=== PATIENT | female | born 1940 | race Asian ===

== ENCOUNTER 2018-09-23 15:13 | Inpatient (IN) | payer OTHER ==
[~2018-09-23] VITALS: Ht 152.4 cm; Wt 63.4 kg
[2018-09-23] MEDS ORDERED: SODIUM CHLORIDE 0.9% 1L BAG IV* STA (15:33)
[2018-09-23] MEDS ORDERED: CEFEPIME 2GM/50 ML (PMX) 50 ML IVPB STA (15:33)
--- NOTE | 2018-09-23 15:47 | ERD ---
ER Documentation Chief Complaint Chief Complaint gen weakness and cough and congestion for 3 wks and poor po intake HPI This is a 78-year-old female who is here for cough congestion generalized weakness, excessive sleeping and decreased appetite for 3 days. The daughter is here with the patient says the last time this happened the patient had a UTI. Patient denies any GI symptoms of pain nausea vomiting or diarrhea. Denies any dysuria. She does complain of generalized malaise and fatigue ROS All systems reviewed and are negative except as per history of present illness. Medications Home Meds Reported Medications Sertraline Hcl* (Sertraline Hcl*) 25 Mg Tablet, 25 MG PO DAILY, #30 TAB 09/23/18 Alprazolam* (Xanax*) 2 Mg Tablet, 2 MG PO BID, TAB 09/23/18 Atorvastatin Calcium* (Atorvastatin Calcium*) 20 Mg Tablet, 20 MG PO QHS, #30 TAB 09/23/18 Labetalol Hcl* (Labetalol Hcl*) 300 Mg Tablet, 300 MG PO BID, TAB 09/23/18 Hydralazine Hcl* (Hydralazine Hcl*) 50 Mg Tab, 50 MG PO BID, #120 TAB 09/23/18 Calcium Carbonate/Vitamin D3 (Calcium 500 mg Chewable Tablet) 1 Each Tab.chew, 1 EACH PO BID, TAB.CHEW 09/23/18 Diclofenac Sodium* (Voltaren* Gel) 1% -100 Gm Gel, GM TOP QID, #1 TUB 09/23/18 Gabapentin* (Gabapentin*) 300 Mg Capsule, 300 MG PO BID, #60 CAP 09/23/18 Furosemide* (Furosemide*) 40 Mg/5 Ml Solution, 40 MG PO DAILY, #150 ML 09/23/18 Meloxicam* (Mobic*) 15 Mg Tablet, 15 MG PO DAILY, #30 TAB 09/23/18 Alendronate Sodium* (Fosamax*) 70 Mg Tablet, 70 MG PO Q7D, #4 TAB 09/23/18 Omeprazole* (Omeprazole*) 20 Mg Capsule.dr, 20 MG PO DAILY, #30 CAP 09/23/18 Metformin Hcl* (Metformin Hcl*) 500 Mg Tablet, 500 MG PO WITH MEALS, #90 TAB 09/23/18 Docusate Sodium* (Colace*) 250 Mg Capsule, 250 MG PO BID, #60 CAP 09/23/18 Aspirin (Aspir-Low) 81 Mg Tablet.dr, 81 MG PO DAILY 09/23/18 Allergies Allergies: Coded Allergies: codeine (Verified Allergy, Unknown, 09/23/18) FmHx Family History: No coronary disease Physical Exam Vitals Vital Signs Date Temp Pulse Resp B/P (MAP) Pulse Ox O2 O2 Flow FiO2 Time Delivery Rate 09/23/18 98.6 61 19 169/96 100 Nasal 2.0 16:37 (120) Cannula 09/23/18 Nasal 2.0 16:07 Cannula 09/23/18 Nasal 2 16:07 Cannula 09/23/18 97.8 100 20 144/100 98 15:27 (115) Physical Exam Const: Well-developed, well-nourished Head: Atraumatic, normocephalic Eyes: Normal Conjunctiva, PERRLA, EOMI, normal sclera, no nystagmus ENT: Normal External Ears, Nose and Mouth, moist mucus membranes. Neck: Full range of motion. No meningismus, no lymphadenopathy. Resp: Clear to auscultation bilaterally, no wheezing, rhonchi, rales Cardio: Regular rate and rhythm, no murmurs, S1 S2 present Abd: Soft, non tender x 4, non distended. Normal bowel sounds, no guarding or rebound, no pulsitile abdominal masses or bruits Skin: No petechiae or rashes, no ecchymosis , no maculopapular rash Back: No midline or flank tenderness Ext: No cyanosis, or edema, FROM x 4, normal inspection, neurovascularly intact x 4 Neur: Awake and alert, STR 5/5 x 4, sensation intact x 4, no focal findings, cerebellum intact Psych: Normal Mood and Affect Result Diagram: 09/23/18 1540 09/23/18 1540 Results 24 hrs Laboratory Tests Test 09/23/18 15:40 09/23/18 15:48 White Blood Count 9.8 10^3/ul Red Blood Count 4.07 10^6/ul Hemoglobin 11.9 g/dl Hematocrit 37.6 % Mean Corpuscular Volume 92.4 fl Mean Corpuscular Hemoglobin 29.2 pg Mean Corpuscular Hemoglobin Concent 31.6 g/dl Red Cell Distribution Width 14.6 % Platelet Count 567 10^3/UL Mean Platelet Volume 9.9 fl Immature Granulocytes % 0.900 % Neutrophils % 82.5 % Lymphocytes % 8.4 % Monocytes % 6.8 % Eosinophils % 0.8 % Basophils % 0.6 % Nucleated Red Blood Cells % 0.2 /100WBC Immature Granulocytes # 0.090 10^3/ul Neutrophils # 8.1 10^3/ul Lymphocytes # 0.8 10^3/ul Monocytes # 0.7 10^3/ul Eosinophils # 0.1 10^3/ul Basophils # 0.1 10^3/ul Nucleated Red Blood Cells # 0.0 10^3/ul Urine Color DAVE Urine Clarity CLOUDY Urine pH 5.0 Urine Specific [place] 1.021 Urine Ketones TRACE mg/dL Urine Nitrite NEGATIVE mg/dL Urine Bilirubin NEGATIVE mg/dL Urine Urobilinogen 2+ mg/dL Urine Leukocyte Esterase NEGATIVE Ilana/ul Urine Microscopic RBC 2 /HPF Urine Microscopic WBC 6 /HPF Urine Squamous Epithelial Cells FEW /HPF Urine Hyaline Casts FEW /HPF Urine Mucus FEW /HPF Urine Hemoglobin NEGATIVE mg/dL Urine Glucose NEGATIVE mg/dL Urine Total Protein NEGATIVE mg/dl Sodium Level 147 mmol/L Potassium Level 3.7 mmol/L Chloride Level 109 mmol/L Carbon Dioxide Level 26 mmol/L Anion Gap 12 Blood Urea Nitrogen 41 mg/dl Creatinine 1.35 mg/dl Est Glomerular Filtrat Rate mL/min mL/min Glucose Level 128 mg/dl Calcium Level 9.5 mg/dl Total Bilirubin 0.3 mg/dl Direct Bilirubin 0.00 mg/dl Indirect Bilirubin 0.3 mg/dl Aspartate Amino Transf (AST/SGOT) 42 IU/L Alanine Aminotransferase (ALT/SGPT) 34 IU/L Alkaline Phosphatase 96 IU/L Troponin I 0.078 ng/ml Total Protein 7.7 g/dl Albumin 3.7 g/dl Globulin 4.00 g/dl Albumin/Globulin Ratio 0.92 POC Venous Lactate 2.1 mmol/L Current Medications Medications Dose Sig/Nena Start Time Status Last (Trade) Ordered Route PRN Stop Time Admin Dose Reason Admin Sodium 2,180 ml BOLUS OVER 2 09/23/18 DC 09/23/18 Chloride HOURS STAT 15:33 09/23/18 15:52 (NS) IV* 15:36 Cefepime HCl 50 ml @ ONCE STAT 09/23/18 DC 09/23/18 100 mls/hr IVPB 15:33 09/23/18 15:52 16:02 Vancomycin 250 ml @ ONCE ONCE 09/23/18 09/23/18 HCl 125 mls/hr IVPB 16:00 09/23/18 16:34 17:59 Procedures/MDM Ordering MD: MARÍA MICHELLE DO Location: E/R Room/Bed: PROCEDURE: XR Chest. CLINICAL INDICATION: Chest pain TECHNIQUE: Single frontal view of the chest was obtained. COMPARISON: None FINDINGS: The heart is within normal limits. The thoracic aorta is calcified. There are mild increased interstitial changes throughout the lungs. There is no focal infiltrate. There is a possible 4 mm right lower lobe nodular opacity. There is no pleural effusion or pneumothorax. RPTAT: AA IMPRESSION: Mild increased interstitial changes throughout the lungs. Possible 4 mm right lower lobe nodular opacity. Follow-up CT chest is recommended. Calcified aorta consistent with atherosclerotic disease. .Alirio Costa MD, MD Date Time Electronically viewed and signed by .Alirio Costa MD, MD on 09/23/2018 16:10 .S/ CC: MARÍA MICHELLE DO [id number] EKG: Rate/Rhythm: Sinus rhythm with a heart rate of 91 with right axis d eviation QRS, ST, QT: NORMAL [place], QRS, prolonged QT] Impression: Abnormal Admit MDM: Patient's infectious symptoms have not stabilized and the patient is at risk of rapid decompensation. The patient will be admitted for careful hydration, antibiotic therapy, and infectious source control. Severe Sepsis criteria: Infectious source: Urine End organ damage indicated by: Elevated lactate Lactate > 2.0 mmol/L Hypotension (SBP < 90 or >40 mmHG drop or MAP < 65) Acute Resp Failure (sat < 92% w/o oxygen) General Accountant > 2.0 INR > 1.5 Plt < 100 Bili > 2 Sepsis Management: Time of recognition of severe sepsis: At time of lactate Within 3 hours of recognition: Blood cultures x 2 before broad-spectrum antibiotics: yes 30 ml/kg NS bolus completed Initial lactate 2.1 Repeat lactate pending Septic Shock Assessment: Any lactic acid > 4.0 no Persistent hypotension (SBP < 90 or 40 mmHg drop, MAP < 65) despite 30 mL/kg IV fluid bolusno Persistent Hypotension Treatment: Comfort care no Hypotension caused by: pt. baseline, med-induced, erroneous value, condition other than infection no Refusal by patient/decision maker for: blood draw, IVF, Antibiotics, Pressorsno Accepting Care Team Current data and ongoing care discussed. Time: Admitting Physician: Panel Shaker Repairer(s): Outstanding Data: none Critical Care Time: 30 minutes Treatments/Evaluations: Close monitoring and treatment of unstable vital signs, cardiorespiratory, and neurologic status, while maintaining tight balance of fluid, respiratory, and cardiac interventions. This includes the administration of emergency fluid management while maintaining close respiratory support as well as the provision of immediate and broad-spectrum antibiotic therapy, while performing a simultaneous assessment for possible sources in order to direct targeted therapy. This time includes discussing the case with the patient and the patient's family. This time also includes the consideration for invasive and chemical support to prevent cardiopulmonary collapse. This time does not include all procedures stated elsewhere in this record. This time also includes reviewing old records, labs and radiological studies. This time includes examining and re-examining the patient. Additionally, this time also includes arranging care with admitting and consulting physicians. Departure Diagnosis: Primary Impression: Sepsis Sepsis type: sepsis due to unspecified organism Qualified Codes: A41.9 - Sepsis, unspecified organism Additional Impressions: UTI (urinary tract infection) Urinary tract infection type: acute cystitis Hematuria presence: without hematuria Qualified Codes: N30.00 - Acute cystitis without hematuria URI (upper respiratory infection) URI type: unspecified URI Qualified Codes: J06.9 - Acute upper respiratory infection, unspecified Condition: Stable MARÍA MICHELLE DO Sep 23, 2018 15:47
[2018-09-23] MEDS ORDERED: VANCOMYCIN 1 GM (PMX) 250 ML IVPB ONE (16:00)
[2018-09-23] MEDS ORDERED: ASPI81TA50 PO (16:51)
[2018-09-23] MEDS ORDERED: DOCU250C58 PO (16:52)
[2018-09-23] MEDS ORDERED: METF500T24 PO (16:53)
[2018-09-23] MEDS ORDERED: OMEP20CA16 PO (16:56)
[2018-09-23] MEDS ORDERED: ALEN70TA5 PO (16:57)
[2018-09-23] MEDS ORDERED: FURO40SO PO (16:58)
[2018-09-23] MEDS ORDERED: GABA300C16 PO (16:58)
[2018-09-23] MEDS ORDERED: MELO15TA30 PO (16:58)
[2018-09-23] MEDS ORDERED: DICL100G37 TOP (17:02)
[2018-09-23] MEDS ORDERED: HYDR-3672 PO (17:04)
[2018-09-23] MEDS ORDERED: CALC-686 PO (17:04)
[2018-09-23] MEDS ORDERED: ATOR20TA38 PO (17:05)
[2018-09-23] MEDS ORDERED: LABE300T2 PO (17:05)
[2018-09-23] MEDS ORDERED: SERT25TA83 PO (17:06)
[2018-09-23] MEDS ORDERED: ALPR2TAB PO (17:06)
[2018-09-23] MEDS ORDERED: NACL 0.9% 3 ML SYG IV SCH (18:30)
--- NOTE | 2018-09-23 18:45 | HP ---
Date/Time of Note Date/Time of Note DATE: 09/23/18 TIME: 18:32 Assessment/Plan VTE Prophylaxis SCD applied (from Nsg): Yes Pharmacological prophylaxis: NA/contraindicated Pharm contraindication: low risk/ambulating Lines/Catheters IV Catheter Type (from Nrsg): Peripheral IV Assessment/Plan Assessment/Plan 78 yo woman with HTN, dyslipidemia presents with several days of fatigue and elevated Cr #Fatigue, anorexia - May represent viral exanthem - Vitals, labs on admission not concerning for sepsis. - UTI: UA with mild pyuria. No dysuria. Will send urine culture. For now suspicion is low, will hold off on Abx. - CXR: No pneumonia - Will start diet - Also will hold benzo - Physical therapy. #Hypoxia - On admission, patient requiring 2L NC - CXR with diffuse interstitial infiltrates - If ABG shows significant hypoxia, will consider high-res CT chest. #Elevated Cr - No known baseline. - This may just be CKD - Will check renal US, repeat BMP in AM #HTN - Cont home beta olimpia and hydralazine #Dyslipidemia - Cont home statin. DVT: SCDs GI: PPI Result Diagram: 09/23/18 1540 09/23/18 1540 HPI/ROS Admit Date/Time Admit Date/Time September 23, 2018 Hx of Present Illness Ms. Nunez is a pleasant Somali-speaking woman brought in by daughter for fatigue and weakness. Over the past three days she reports anorexia and gradually progressive weakness. Two days ago when her daughter was trying to help her up, the patient slid off her bed because she was too weak to support her weight. She didn't strike her head and didn't have pain afterwards; no loss of consciousness. Also with anorexia during this time. The daughter reports last time this happened, the patient had a UTI. About a month ago she had an upper respiratory infection with productive cough; this has almost completely resolved. Today her daughter brought her to a new PMD (the old one wasn't covered by her insurance anymore) and she was told she had kidney problems and should go to the emergency room. In the ED she was afebrile, slightly tachy to 100, BP 169/96. Breathing comfortably on nasal cannula. Labs unremarkable except for Cr of 1.35. ROS Denies recent fevers, chills, night sweats, weight loss, sore throat, dysphagia, headaches, dizziness, chest pain/pressure/palpitations, dyspnea, nausea, vomiting, abdominal pain, diarrhea, constipation, dysuria, hematuria PMH/Family/Social Past Medical History HTN Dyslipidemia Anxiety Coded Allergies: codeine (Verified Allergy, Unknown, 09/23/18) Past Surgical History Social History Lives with daughter. She is normally independent with ADLs. Alcohol Use: none Smoking Status: Never smoker Drug Use: none Exam/Review of Systems Vital Signs Vitals Vital Signs Date Temp Pulse Resp B/P (MAP) Pulse Ox O2 O2 Flow FiO2 Time Delivery Rate 09/23/18 98.6 61 19 169/96 100 Nasal 2.0 16:37 (120) Cannula Exam Exam Gen: Well appearing but frail elderly woman awake and answering questions slightly slowly. Eyes: PERRL, no icterus HEENT: Clear oropharynx, moist mucous membranes Neck: No lymphadenopathy, supple Card: Regular rate and rhythm, no murmurs Pulm: Clear to auscultation bilaterally, mild diffuse crackles throughout. Abd: Soft, nontender, nondistended. No organomegaly, normoactive bowel sounds. Ext: No cyanosis/clubbing/edema, intact peripheral pulses. Skin: warm, dry, well perfused. NITA BERRIOS MD Sep 23, 2018 18:44
[2018-09-23] MEDS ORDERED: ACETAMINOPHEN 325 MG TAB PO PRN (19:00)
[2018-09-23] MEDS ORDERED: ONDANSETRON 4 MG INJ IV PRN (19:00)
[2018-09-23 21:30] VITALS: BP 133/80; PULSE 101; RESP 20
[2018-09-23] MEDS: ATORVASTATIN 20 MG TAB PO SCH (23:00)
[2018-09-23] MEDS: GABAPENTIN 300 MG CAP PO SCH (23:00)
[2018-09-23] MEDS ORDERED: LEVALBUTEROL (NEB) 1.25 MG/0.5 ML AMP HHN PRN (23:30)
[2018-09-23] MEDS ORDERED: IPRATROPIUM (NEB) 0.5 MG/2.5 ML AMP HHN PRN (23:30)
[2018-09-24 02:00] VITALS: BP 112/75; PULSE 98
[2018-09-24] MEDS: PANTOPRAZOLE (EC) 40 MG TAB PO SCH (08:25)
[2018-09-24] MEDS: ASPIRIN (EC) 81 MG TAB PO SCH (08:28)
[2018-09-24] MEDS: GABAPENTIN 300 MG CAP PO SCH ×2 (08:29→21:44)
[2018-09-24] MEDS: LABETALOL 100 MG TAB PO SCH ×3 (08:29→21:44)
[2018-09-24 08:52] VITALS: BP 133/69; PULSE 98; RESP 18
[2018-09-24] MEDS ORDERED: POTASSIUM CHLORIDE 20 MEQ POWDER FOR ORAL SOLN PO ONE (09:00)
[2018-09-24 15:04] VITALS: BP_DIAS 73; PULSE 91; RESP 20
--- NOTE | 2018-09-24 16:42 | PN ---
Date/Time of Note Date/Time of Note DATE: 09/24/18 TIME: 16:40 Assessment/Plan VTE Prophylaxis Risk score (from Ns)>0 risk: 5 SCD applied (from Ns): Yes Pharmacological prophylaxis: NA/contraindicated Pharm contraindication: low risk/ambulating Lines/Catheters [facility] Saline Lock Urinary Cath still in place: No Assessment/Plan Assessment/Plan 78 yo woman with HTN, dyslipidemia presents with several days of fatigue and elevated Cr #Fatigue, anorexia - May represent viral exanthem - Vitals, labs on admission not concerning for sepsis. - UTI: UA with mild pyuria. No dysuria. Will send urine culture. For now suspicion is low, will hold off on Abx. - CXR: No pneumonia - Will start diet - Also will hold benzo - Physical therapy. #Hypoxia - On admission, patient requiring 2L NC - CXR with diffuse interstitial infiltrates - If ABG with very low PaO2 69, - will get high-res CT chest. #Elevated Cr - No known baseline. - Now downtrending. #HTN - Cont home beta olimpia and hydralazine #Dyslipidemia - Cont home statin. DVT: SCDs GI: PPI Result Diagram: 09/24/18 0452 09/24/18 0452 Subjective 24 Hr Interval Summary Free Text/Dictation No acute overnight events. Patient doing well, much more talkative according to daughter. Able to ambulate out of bed, sit on chair. Exam/Review of Systems Exam Vitals Vital Signs Date Temp Pulse Resp B/P (MAP) Pulse Ox O2 O2 Flow FiO2 Time Delivery Rate 09/24/18 98.2 91 20 /73 94 Nasal 15:04 Cannula 09/24/18 2.0 14:09 Intake and Output 09/23/18 09/23/18 09/24/18 1515:00 23:00 07:00 IntakeIntake Total 2230 ml BalanceBalance 2230 ml Exam Gen: Well appearing but frail elderly woman awake and answering questions slightly slowly. Eyes: PERRL, no icterus HEENT: Clear oropharynx, moist mucous membranes Neck: No lymphadenopathy, supple Card: Regular rate and rhythm, no murmurs Pulm: Clear to auscultation bilaterally, mild diffuse crackles throughout. Abd: Soft, nontender, nondistended. No organomegaly, normoactive bowel sounds. Ext: No cyanosis/clubbing/edema, intact peripheral pulses. Skin: warm, dry, well perfused. Results Results 24hrs Laboratory Tests Test 09/23/18 17:52 09/23/18 20:59 09/23/18 23:02 09/24/18 04:52 POC Venous Lactate 1.3 Lactic Acid Level 1.1 Blood Gas Specimen Blood arterial Source Arterial Blood 09/24/2018 12:00:48 Date Drawn AM Arterial Blood pH 7.414 (Temp corrected) Arterial Blood 35.2 pCO2 (Temp correct) Arterial Blood pO2 69.5 L (Temp corrected) Arterial Blood 22.0 HCO3 Arterial Blood -2.1 Base Excess Arterial Blood 92.9 L Oxygen Saturation Jose Test ACCEPTAB Arterial Blood Gas Right Radial Puncture Site Arterial 0 Blood Carboxyhemog lobin Arterial Blood 0 Methemoglobin Blood Gas A-a O2 81.4 H Differential Oxyhemoglobin 92.9 L Percent Blood Gas 37.0 Temperature Blood Gas Modality NASAL CANNULA FiO2 27.0 Blood Gas Notified MM Whom Blood Gas Notified 09/24/2018 12:14:11 Time AM White Blood Count 7.9 Red Blood Count 3.38 L Hemoglobin 9.8 L Hematocrit 31.2 L Mean Corpuscular 92.3 Volume Mean Corpuscular 29.0 Hemoglobin Mean Corpuscular 31.4 L Hemoglobin Concent Red Cell 14.7 H Distribution Width Platelet Count 482 H Mean Platelet 9.9 Volume Immature 0.600 H Granulocytes % Neutrophils % 69.5 Lymphocytes % 15.0 Monocytes % 9.6 Eosinophils % 4.8 Basophils % 0.5 Nucleated Red 0.0 Blood Cells % Immature 0.050 H Granulocytes # Neutrophils # 5.5 Lymphocytes # 1.2 Monocytes # 0.8 Eosinophils # 0.4 Basophils # 0.0 Nucleated Red 0.0 Blood Cells # Sodium Level 146 H Potassium Level 3.4 L Chloride Level 115 H Carbon Dioxide 24 Level Anion Gap 7 Blood Urea 32 H Nitrogen Creatinine 1.18 H Est Glomerular Filtrat Rate mL/min Glucose Level 95 Hemoglobin A1c 5.8 Calcium Level 8.3 L Phosphorus Level 4.5 Magnesium Level 1.9 Total Bilirubin 0.2 Direct Bilirubin 0.00 Indirect Bilirubin 0.2 Aspartate Amino 27 Transf (AST/SGOT) Alanine 30 Aminotransferase ( ALT/SGPT) Alkaline 67 Phosphatase Total Protein 5.9 #L Albumin 2.7 #L Globulin 3.20 Albumin/Globulin 0.84 Ratio Medications Medication Current Medications IV Flush (NS 3 ml) 3 ml PER PROTOCOL IV ; Start 09/23/18 at 18:30 Aspirin (Halfprin) 81 mg DAILY PO Last administered on 09/24/18at 08:28; Admin Dose 81 MG; Start 09/24/18 at 09:00 Atorvastatin Calcium (Lipitor) 20 mg QHS PO ; Start 09/23/18 at 21:00 Gabapentin (Neurontin) 300 mg BID PO ; Start 09/23/18 at 21:00 Hydralazine HCl (Apresoline) 50 mg BID PO Last administered on 09/24/18at 08:29; Admin Dose 50 MG; Start 09/23/18 at 21:00 Labetalol HCl (Normodyne) 300 mg BID PO ; Start 09/23/18 at 21:00 Pantoprazole (Protonix Tab) 40 mg DAILY@06 PO Last administered on 09/24/18at 08:25; Admin Dose 40 MG; Start 09/24/18 at 06:00 Levalbuterol (Xopenex Neb) 1.25 mg Q4H RESP THERAPY PRN HHN SHORTNESS OF BREATH; Start 09/23/18 at 23:30 Ipratropium [place] (Atrovent 0.02% (Neb)) 0.5 mg Q4H RESP THERAPY PRN HHN SHORTNESS OF BREATH; Start 09/23/18 at 23:30 NITA BERRIOS MD Sep 24, 2018 16:42
[2018-09-24 19:43] VITALS: BP 145/81; PULSE 105; RESP 18
[2018-09-24 19:48] VITALS: BP 84/53; PULSE 95; RESP 18
[2018-09-24] MEDS: ATORVASTATIN 20 MG TAB PO SCH (21:44)
[2018-09-24] MEDS ORDERED: ALPRAZOLAM 0.25 MG TAB PO ONE (22:30)
[2018-09-25] MEDS: BENZONATATE 100 MG CAP PO PRN ×2 (00:08→06:18)
[2018-09-25 02:00] VITALS: BP 92/60; PULSE 76; RESP 18
[2018-09-25] MEDS: PANTOPRAZOLE (EC) 40 MG TAB PO SCH (06:18)
[2018-09-25 08:15] VITALS: BP 95/59; PULSE 65; RESP 16
[2018-09-25] MEDS: LABETALOL 100 MG TAB PO SCH (09:00)
[2018-09-25] MEDS: ASPIRIN (EC) 81 MG TAB PO SCH (09:52)
[2018-09-25] MEDS: GABAPENTIN 300 MG CAP PO SCH ×2 (09:52→21:13)
--- NOTE | 2018-09-25 10:46 | PN ---
Date/Time of Note Date/Time of Note DATE: 09/25/18 TIME: 10:40 Assessment/Plan VTE Prophylaxis Risk score (from Nsg)>0 risk: 5 SCD applied (from Nsg): Yes Pharmacological prophylaxis: LMWH Lines/Catheters IV Catheter Type (from Nrsg): Saline Lock Urinary Cath still in place: No Assessment/Plan Hospital Course S: coughing, seems stronger per daughter and appetite is better O: Constitutional: alert, oriented, elderly obese, no distress, communicative, but speech is slow Head: atraumatic, normocephalic Neck: non-tender, supple Respiratory: coarse crackles in upper airway (throat) suggestive of phlegm but clear to auscultation with fairly good a/e in in the lower lobes Cardiovascular: regular rate and rhythm Gastrointestinal: S/ NT / ND / +BS Extremities: no edema, good radial pulses assessment and plan: 1. debility and lethargy and poor apetitie likely 2/2 #2 -Improved ? cleared for home by PT with HHPT -patient declined short term rehab 2. LRTI -viral ?, Chest CT pending -empiric abx 3. Pulm nodule -f/u chest CT 4. MANAV versus CKD -no obstruction on USS -likely underlying CKD, Cr levels holding steady, no proteinuria on UA -close monitoring for now -Renally dose all meds. Serial labs. 5. dyslipidemia -home statin 6. HTN - BP control a little too tight on current regimen, may need reevaluation of antihypertensives 7. AREN : -PRN xanax as she was taking at home Dispo: -fairly improved, plan to d/c home with or without abx after review of CT if she remains stable and no further inpatient intervention required Result Diagram: 09/25/1845 09/25/1845 Results 24hrs Laboratory Tests Test 09/25/18 09:45 White Blood Count 9.4 Red Blood Count 3.35 L Hemoglobin 9.6 L Hematocrit 30.7 L Mean Corpuscular Volume 91.6 Mean Corpuscular Hemoglobin 28.7 L Mean Corpuscular Hemoglobin Concent 31.3 L Red Cell Distribution Width 15.4 H Platelet Count 424 H Mean Platelet Volume 9.7 Immature Granulocytes % 0.600 H Neutrophils % 72.5 Lymphocytes % 12.6 L Monocytes % 9.4 Eosinophils % 4.4 Basophils % 0.5 Nucleated Red Blood Cells % 0.0 Immature Granulocytes # 0.060 H Neutrophils # 6.8 Lymphocytes # 1.2 Monocytes # 0.9 Eosinophils # 0.4 Basophils # 0.1 Nucleated Red Blood Cells # 0.0 Sodium Level 142 Potassium Level 3.6 Chloride Level 113 H Carbon Dioxide Level 21 Anion Gap 8 Blood Urea Nitrogen 25 H Creatinine 1.56 H Est Glomerular Filtrat Rate mL/min Glucose Level 138 # Calcium Level 8.6 Exam/Review of Systems Exam Vitals Vital Signs Date Temp Pulse Resp B/P (MAP) Pulse Ox O2 O2 Flow FiO2 Time Delivery Rate 09/25/18 Nasal 3.0 10:02 Cannula 09/25/18 97.4 65 16 95/59 (71) 93 08:15 Intake and Output 09/24/18 09/24/18 09/25/18 1515:00 23:00 07:00 IntakeIntake Total 120 ml BalanceBalance 120 ml Results Results 24hrs Laboratory Tests Test 09/25/18 09:45 White Blood Count 9.4 Red Blood Count 3.35 L Hemoglobin 9.6 L Hematocrit 30.7 L Mean Corpuscular Volume 91.6 Mean Corpuscular Hemoglobin 28.7 L Mean Corpuscular Hemoglobin Concent 31.3 L Red Cell Distribution Width 15.4 H Platelet Count 424 H Mean Platelet Volume 9.7 Immature Granulocytes % 0.600 H Neutrophils % 72.5 Lymphocytes % 12.6 L Monocytes % 9.4 Eosinophils % 4.4 Basophils % 0.5 Nucleated Red Blood Cells % 0.0 Immature Granulocytes # 0.060 H Neutrophils # 6.8 Lymphocytes # 1.2 Monocytes # 0.9 Eosinophils # 0.4 Basophils # 0.1 Nucleated Red Blood Cells # 0.0 Sodium Level 142 Potassium Level 3.6 Chloride Level 113 H Carbon Dioxide Level 21 Anion Gap 8 Blood Urea Nitrogen 25 H Creatinine 1.56 H Est Glomerular Filtrat Rate mL/min Glucose Level 138 # Calcium Level 8.6 Medications Medication Current Medications IV Flush (NS 3 ml) 3 ml PER PROTOCOL IV ; Start 09/23/18 at 18:30 Aspirin (Halfprin) 81 mg DAILY PO Last administered on 09/25/18at 09:52; Admin Dose 81 MG; Start 09/24/18 at 09:00 Atorvastatin Calcium (Lipitor) 20 mg QHS PO Last administered on 09/24/18 21:44; Admin Dose 20 MG; Start 09/23/18 at 21:00 Gabapentin (Neurontin) 300 mg BID PO Last administered on 09/25/18 09:52; Admin Dose 300 MG; Start 09/23/18 at 21:00 Hydralazine HCl (Apresoline) 50 mg BID PO Last administered on 09/24/18 21:44; Admin Dose 50 MG; Start 09/23/18 at 21:00 Labetalol HCl (Normodyne) 300 mg BID PO Last administered on 09/24/18 21:44; Admin Dose 300 MG; Start 09/23/18 at 21:00 Pantoprazole (Protonix Tab) 40 mg DAILY@06 PO Last administered on 09/25/18 06:18; Admin Dose 40 MG; Start 09/24/18 at 06:00 Levalbuterol (Xopenex Neb) 1.25 mg Q4H RESP THERAPY PRN HHN SHORTNESS OF BREATH; Start 09/23/18 at 23:30 Ipratropium [place] (Atrovent 0.02% (Neb)) 0.5 mg Q4H RESP THERAPY PRN HHN SHORTNESS OF BREATH; Start 09/23/18 at 23:30 Benzonatate (Tessalon) 100 mg TID PRN PO COUGH Last administered on 09/25/18 06:18; Admin Dose 100 MG; Start 09/24/18 at 22:30 Ceftriaxone Sodium 50 ml @ 100 mls/hr Q24H IVPB ; Start 09/25/18 at 11:00 Azithromycin 250 ml @ 250 mls/hr Q24H IVPB ; Start 09/25/18 at 12:00 LEXIE BOOGIE Sep 25, 2018 10:46
[2018-09-25] MEDS ORDERED: CEFTRIAXONE 1 GM/50 ML (PMX) 50 ML IVPB SCH (11:00)
[2018-09-25] MEDS ORDERED: AZITHROMYCIN 500MG/NS (PMX) 250 ML IVPB SCH (12:00)
--- NOTE | 2018-09-25 12:30 | CONS ---
DATE OF ADMISSION: 09/23/2018 DATE OF CONSULTATION: 09/25/2018 TYPE OF CONSULTATION: Pulmonary REASON FOR CONSULTATION: Shortness of breath. Thank you, Dr. Berrios, for this consultation. HISTORY OF PRESENT ILLNESS: This is a 78-year-old lady who presents with 1-week history of increasin g fatigue, cough, shortness of breath and congestion. She is a nonsmoker. No prior history of chron ic lung disease. Family states her symptoms progressed over the past week. On admission, noted to h ave mild dehydration with mildly elevated creatinine. Family states she has had a cough and signs of increased congestion after meals. PAST MEDICAL HISTORY: Essential hypertension, mild renal insufficiency. MEDICATIONS: Per chart. ALLERGIES: None. SHE IS ALLERGIC TO CODEINE. SOCIAL HISTORY: She is a nonsmoker, no alcohol, no history of drug use. FAMILY HISTORY: Noncontributory. SYSTEMS REVIEW: A 12-point review of systems was negative other than on admission. PHYSICAL EXAMINATION: GENERAL: Elderly-appearing lady, awake, alert, oriented, comfortable at rest, no acute distress. HEENT: Moist mucous membranes. Poor dentition. NECK: Supple. No JVD or lymphadenopathy. CARDIAC: S1, S2, II/ systolic ejection murmur. CHEST: Diminished air entry bilaterally with rales. ABDOMEN: Soft, nontender. No guarding or rebound with few bilateral expiratory wheezes. ABDOMEN: Soft, nontender. No guarding or rebound. EXTREMITIES: No cyanosis, clubbing, 1+ edema. NEUROLOGIC: Generalized weakness. LABORATORY DATA: White count 9.4, hemoglobin 9.6, platelets within normal limits. IMPRESSION AND PLAN: Tracheobronchitis, possible aspiration component. The patient will require: 1. Continued current antibiotics. 2. Speech therapy evaluation. 3. Check procalcitonin in the absence of leukocytosis. 4. DVT and GI prophylaxis. Dictated By: VENKAT MENDEZ MD SV/NTS Conf#: [id number] DID#: [id number] CC: NITA BERRIOS MD;*EndCC*
[2018-09-25] MEDS: PIPER-TAZO 3.375 GM IV (PMX) 100 ML IVPB SCH ×2 (15:45→21:16)
[2018-09-25 20:00] VITALS: BP 105/58; PULSE 90; RESP 18
[2018-09-25] MEDS: ATORVASTATIN 20 MG TAB PO SCH (21:13)
[2018-09-25] MEDS: ALPRAZOLAM 0.25 MG TAB PO SCH (22:29)
[2018-09-25] MEDS ORDERED: ACETAMINOPHEN 325 MG TAB PO PRN (22:30)
[2018-09-26 02:00] VITALS: BP 113/68; PULSE 82; RESP 18
[2018-09-26] MEDS: PIPER-TAZO 3.375 GM IV (PMX) 100 ML IVPB SCH ×3 (05:54→21:41)
[2018-09-26] MEDS: PANTOPRAZOLE (EC) 40 MG TAB PO SCH (05:54)
[2018-09-26] MEDS: BENZONATATE 100 MG CAP PO PRN ×2 (05:58→14:36)
[2018-09-26 08:08] VITALS: BP 104/63; PULSE 76; RESP 18
[2018-09-26] MEDS: GABAPENTIN 300 MG CAP PO SCH ×2 (08:31→21:41)
[2018-09-26] MEDS: ASPIRIN (EC) 81 MG TAB PO SCH (08:31)
--- NOTE | 2018-09-26 08:53 | PN ---
Date/Time of Note Date/Time of Note DATE: 09/26/18 TIME: 08:50 Assessment/Plan VTE Prophylaxis Risk score (from Ns)>0 risk: 5 SCD applied (from Ns): Yes Pharmacological prophylaxis: heparin Lines/Catheters IV Catheter Type (from Nrs): Saline Lock Urinary Cath still in place: No Assessment/Plan Hospital Course S: Better today O: Constitutional: alert, oriented, elderly obese, no distress, communicative, but speech is slow Head: atraumatic, normocephalic Neck: non-tender, supple Respiratory: coarse crackles in upper airway (throat) suggestive of phlegm but clear to auscultation with fairly good a/e in in the lower lobes Cardiovascular: regular rate and rhythm Gastrointestinal: S/ NT / ND / +BS Extremities: no edema, good radial pulses assessment and plan: 1. debility and lethargy and poor apetitie likely 2/2 #2 -Improved, has consented to short term SNF placement 2. Diffuse multifocal PNA -concerning for chronic silent aspiration -ST eval -benefit from aggressive IV abx 3. Pulm nodule - had to see on CT, will need f/u CT after treatment of PNA 4. MANAV versus CKD -no obstruction on USS -likely underlying CKD, Cr levels worsened today -close monitoring for now -Renally dose all meds. Serial labs. -Nephro consult 5. dyslipidemia -home statin 6. HTN - BP control a little too tight on current regimen, may need reevaluation of antihypertensives 7. AREN : -PRN xanax as she was taking at home 8. Pul HTN -secondary? -will get echo as well Dispo: -based on CT findings, will benefit from more aggressive abx treatment -also creatinine trending up -will try to convince patient to go to SNF for short term rehab for PT and ST as well as for IV abx treatment of pna -we also need to closely monitor creatinine levels . Addendum: -was hoping to discharge to SNF today for IV abx for at least 10 days for PNA, but will keep 2/2 worsening renal fxn, Neohro consult also obtained. Result Diagram: 09/26/18 0538 09/26/18 0541 Results 24hrs Laboratory Tests Test 09/25/18 09:45 09/26/18 05:38 09/26/18 05:41 White Blood Count 9.4 10.9 H Red Blood Count 3.35 L 3.18 L Hemoglobin 9.6 L 9.4 L Hematocrit 30.7 L 29.5 L Mean Corpuscular Volume 91.6 92.8 Mean Corpuscular Hemoglobin 28.7 L 29.6 Mean Corpuscular Hemoglobin Concent 31.3 L 31.9 L Red Cell Distribution Width 15.4 H 15.3 H Platelet Count 424 H 430 H Mean Platelet Volume 9.7 9.7 Immature Granulocytes % 0.600 H 0.800 H Neutrophils % 72.5 70.4 Lymphocytes % 12.6 L 13.9 L Monocytes % 9.4 9.1 Eosinophils % 4.4 5.5 Basophils % 0.5 0.3 Nucleated Red Blood Cells % 0.0 0.0 Immature Granulocytes # 0.060 H 0.090 H Neutrophils # 6.8 7.7 H Lymphocytes # 1.2 1.5 Monocytes # 0.9 1.0 H Eosinophils # 0.4 0.6 H Basophils # 0.1 0.0 Nucleated Red Blood Cells # 0.0 0.0 Sodium Level 142 144 Potassium Level 3.6 4.1 Chloride Level 113 H 113 H Carbon Dioxide Level 21 23 Anion Gap 8 8 Blood Urea Nitrogen 25 H 23 H Creatinine 1.56 H 1.71 H Est Glomerular Filtrat Rate mL/min Glucose Level 138 # 132 Calcium Level 8.6 8.5 Creatine Kinase 88 Magnesium Level 1.9 Exam/Review of Systems Exam Vitals Vital Signs Date Temp Pulse Resp B/P (MAP) Pulse Ox O2 O2 Flow FiO2 Time Delivery Rate 09/26/18 97.8 76 18 104/63 95 08:08 (77) 09/26/18 2.0 01:06 09/25/18 Nasal 20:00 Cannula Intake and Output 09/25/18 09/25/18 09/26/18 1515:00 23:00 07:00 IntakeIntake Total 1260 ml 680 ml 340 ml BalanceBalance 1260 ml 680 ml 340 ml Results Results 24hrs Laboratory Tests Test 09/25/18 09:45 09/26/18 05:38 09/26/18 05:41 White Blood Count 9.4 10.9 H Red Blood Count 3.35 L 3.18 L Hemoglobin 9.6 L 9.4 L Hematocrit 30.7 L 29.5 L Mean Corpuscular Volume 91.6 92.8 Mean Corpuscular Hemoglobin 28.7 L 29.6 Mean Corpuscular Hemoglobin Concent 31.3 L 31.9 L Red Cell Distribution Width 15.4 H 15.3 H Platelet Count 424 H 430 H Mean Platelet Volume 9.7 9.7 Immature Granulocytes % 0.600 H 0.800 H Neutrophils % 72.5 70.4 Lymphocytes % 12.6 L 13.9 L Monocytes % 9.4 9.1 Eosinophils % 4.4 5.5 Basophils % 0.5 0.3 Nucleated Red Blood Cells % 0.0 0.0 Immature Granulocytes # 0.060 H 0.090 H Neutrophils # 6.8 7.7 H Lymphocytes # 1.2 1.5 Monocytes # 0.9 1.0 H Eosinophils # 0.4 0.6 H Basophils # 0.1 0.0 Nucleated Red Blood Cells # 0.0 0.0 Sodium Level 142 144 Potassium Level 3.6 4.1 Chloride Level 113 H 113 H Carbon Dioxide Level 21 23 Anion Gap 8 8 Blood Urea Nitrogen 25 H 23 H Creatinine 1.56 H 1.71 H Est Glomerular Filtrat Rate mL/min Glucose Level 138 # 132 Calcium Level 8.6 8.5 Creatine Kinase 88 Magnesium Level 1.9 Medications Medication Current Medications IV Flush (NS 3 ml) 3 ml PER PROTOCOL IV ; Start 09/23/18 at 18:30 Aspirin (Halfprin) 81 mg DAILY PO Last administered on 09/26/18 08:31; Admin Dose 81 MG; Start 09/24/18 at 09:00 Atorvastatin Calcium (Lipitor) 20 mg QHS PO Last administered on 09/25/18at 21:13; Admin Dose 20 MG; Start 09/23/18 at 21:00 Gabapentin (Neurontin) 300 mg BID PO Last administered on 09/26/18 08:31; Admin Dose 300 MG; Start 09/23/18 at 21:00 Pantoprazole (Protonix Tab) 40 mg DAILY@06 PO Last administered on 09/26/18 05:54; Admin Dose 40 MG; Start 09/24/18 at 06:00 Levalbuterol (Xopenex Neb) 1.25 mg Q4H RESP THERAPY PRN HHN SHORTNESS OF BREATH; Start 09/23/18 at 23:30 Ipratropium [place] (Atrovent 0.02% (Neb)) 0.5 mg Q4H RESP THERAPY PRN HHN SHORTNESS OF BREATH; Start 09/23/18 at 23:30 Benzonatate (Tessalon) 100 mg TID PRN PO COUGH Last administered on 09/26/18at 05:58; Admin Dose 100 MG; Start 09/24/18 at 22:30 Hydralazine HCl (Apresoline) 25 mg BID PO ; Start 09/25/18 at 21:00 Enoxaparin Sodium (Lovenox) 30 mg DAILY SC Last administered on 09/26/18at 08:33; Admin Dose 30 MG; Start 09/26/18 at 09:00 Metoprolol Succinate (Toprol Xl) 25 mg DAILY PO ; Start 09/26/18 at 09:00 Piperacillin Sod/ Tazobactam Sod 100 ml @ 200 mls/hr Q8 IVPB Last administered on 09/26/18at 05:54; Admin Dose 200 MLS/HR; Start 09/25/18 at 15:00 Alprazolam (Xanax) 2 mg QHS PO Last administered on 09/25/18at 22:29; Admin Dose 2 MG; Start 09/25/18 at 22:00 Acetaminophen (Tylenol Tab) 650 mg Q6H PRN PO MILD PAIN(1-3)OR ELEVATED TEMP Last administered on 09/25/18at 22:31; Admin Dose 650 MG; Start 09/25/18 at 22:30 Miscellaneous Information (* Miscellaneous Pharmacy Order) can you please ens... ONCE XX ; Start 09/26/18 at 09:00; Status LEXIE LERMA Sep 26, 2018 08:53
[2018-09-26] MEDS ORDERED: ENOXAPARIN 30 MG/0.3 ML SYG SC SCH (09:00)
[2018-09-26] MEDS: METOPROLOL (XL) 25 MG TAB PO SCH (09:52)
--- NOTE | 2018-09-26 12:31 | CONS ---
Consult Date/Type/Reason Admit Date/Time Sep 25, 2018 at 14:23 Initial Consult Date Type of Consult Pulmonary Date/Time of Note DATE: 09/26/18 TIME: 12:30 Subjective Better today. Less shortness of breath Objective Vital Signs Date Temp Pulse Resp B/P (MAP) Pulse Ox O2 O2 Flow FiO2 Time Delivery Rate 09/26/18 97.8 76 18 104/63 95 08:08 (77) 09/26/18 2.0 01:06 09/25/18 Nasal 20:00 Cannula Intake and Output 09/25/18 09/25/18 09/26/18 1515:00 23:00 07:00 IntakeIntake Total 1260 ml 680 ml 340 ml BalanceBalance 1260 ml 680 ml 340 ml Exam PHYSICAL EXAMINATION: GENERAL: Elderly-appearing lady, awake, alert, oriented, comfortable at rest, no acute distress. HEENT: Moist mucous membranes. Poor dentition. NECK: Supple. No JVD or lymphadenopathy. CARDIAC: S1, S2, II/ systolic ejection murmur. CHEST: Diminished air entry bilaterally with rales. ABDOMEN: Soft, nontender. No guarding or rebound EXTREMITIES: No cyanosis, clubbing, 1+ edema. NEUROLOGIC: Generalized weakness. Results/Medications Result Diagram: 09/26/18 0538 09/26/18 0541 Results 24 hrs Laboratory Tests Test 09/26/18 05:38 09/26/18 05:41 White Blood Count 10.9 H Red Blood Count 3.18 L Hemoglobin 9.4 L Hematocrit 29.5 L Mean Corpuscular Volume 92.8 Mean Corpuscular Hemoglobin 29.6 Mean Corpuscular Hemoglobin Concent 31.9 L Red Cell Distribution Width 15.3 H Platelet Count 430 H Mean Platelet Volume 9.7 Immature Granulocytes % 0.800 H Neutrophils % 70.4 Lymphocytes % 13.9 L Monocytes % 9.1 Eosinophils % 5.5 Basophils % 0.3 Nucleated Red Blood Cells % 0.0 Immature Granulocytes # 0.090 H Neutrophils # 7.7 H Lymphocytes # 1.5 Monocytes # 1.0 H Eosinophils # 0.6 H Basophils # 0.0 Nucleated Red Blood Cells # 0.0 Sodium Level 144 Potassium Level 4.1 Chloride Level 113 H Carbon Dioxide Level 23 Anion Gap 8 Blood Urea Nitrogen 23 H Creatinine 1.71 H Est Glomerular Filtrat Rate mL/min Glucose Level 132 Calcium Level 8.5 Magnesium Level 1.9 Medications Current Medications IV Flush (NS 3 ml) 3 ml PER PROTOCOL IV ; Start 09/23/18 at 18:30 Aspirin (Halfprin) 81 mg DAILY PO Last administered on 09/26/18 08:31; Admin Dose 81 MG; Start 09/24/18 at 09:00 Atorvastatin Calcium (Lipitor) 20 mg QHS PO Last administered on 09/25/18 21:13; Admin Dose 20 MG; Start 09/23/18 at 21:00 Gabapentin (Neurontin) 300 mg BID PO Last administered on 09/26/18 08:31; Admin Dose 300 MG; Start 09/23/18 at 21:00 Pantoprazole (Protonix Tab) 40 mg DAILY@06 PO Last administered on 09/26/18 05:54; Admin Dose 40 MG; Start 09/24/18 at 06:00 Levalbuterol (Xopenex Neb) 1.25 mg Q4H RESP THERAPY PRN HHN SHORTNESS OF BREATH; Start 09/23/18 at 23:30 Ipratropium [place] (Atrovent 0.02% (Neb)) 0.5 mg Q4H RESP THERAPY PRN HHN SHORTNESS OF BREATH; Start 09/23/18 at 23:30 Benzonatate (Tessalon) 100 mg TID PRN PO COUGH Last administered on 09/26/18 05 :58; Admin Dose 100 MG; Start 09/24/18 at 22:30 Hydralazine HCl (Apresoline) 25 mg BID PO Last administered on 09/26/18 09:53; Admin Dose 25 MG; Start 09/25/18 at 21:00 Enoxaparin Sodium (Lovenox) 30 mg DAILY SC Last administered on 09/26/18 08:33; Admin Dose 30 MG; Start 09/26/18 at 09:00 Metoprolol Succinate (Toprol Xl) 25 mg DAILY PO Last administered on 09/26/18 09:52; Admin Dose 25 MG; Start 09/26/18 at 09:00 Piperacillin Sod/ Tazobactam Sod 100 ml @ 200 mls/hr Q8 IVPB Last administered on 09/26/18 05:54; Admin Dose 200 MLS/HR; Start 09/25/18 at 15:00 Alprazolam (Xanax) 2 mg QHS PO Last administered on 09/25/18at 22:29; Admin Dose 2 MG; Start 09/25/18 at 22:00 Acetaminophen (Tylenol Tab) 650 mg Q6H PRN PO MILD PAIN(1-3)OR ELEVATED TEMP Last administered on 09/25/18at 22:31; Admin Dose 650 MG; Start 09/25/18 at 22:30 Miscellaneous Information (* Miscellaneous Pharmacy Order) can you please ens... ONCE XX ; Start 09/26/18 at 09:00 Assessment/Plan Hospital Course (Demo Recall) Assessment 1. Acute hypoxemic respiratory failure likely secondary to commute acquired pneumonia possible aspiration component 2. Renal insufficiency Plan 1. Continue antibiotics 2. Physical therapy evaluation ambulate 3. Decrease O2 as tolerated 4. Bronchodilator treatment 5. Outpatient follow-up with me for PFTs. EVNKAT MENDEZ MD, [facility] Sep 26, 2018 12:31
--- NOTE | 2018-09-26 12:32 | CONS ---
Consult Date/Type/Reason Admit Date/Time Sep 25, 2018 at 14:23 Initial Consult Date Type of Consult Pulmonary Date/Time of Note DATE: 09/26/18 TIME: 12:32 Objective Vital Signs Date Temp Pulse Resp B/P (MAP) Pulse Ox O2 O2 Flow FiO2 Time Delivery Rate 09/26/18 97.8 76 18 104/63 95 08:08 (77) 09/26/18 2.0 01:06 09/25/18 Nasal 20:00 Cannula Intake and Output 09/25/18 09/25/18 09/26/18 1515:00 23:00 07:00 IntakeIntake Total 1260 ml 680 ml 340 ml BalanceBalance 1260 ml 680 ml 340 ml Results/Medications Result Diagram: 09/26/18 0538 09/26/18 0541 Results 24 hrs Laboratory Tests Test 09/26/18 05:38 09/26/18 05:41 White Blood Count 10.9 H Red Blood Count 3.18 L Hemoglobin 9.4 L Hematocrit 29.5 L Mean Corpuscular Volume 92.8 Mean Corpuscular Hemoglobin 29.6 Mean Corpuscular Hemoglobin Concent 31.9 L Red Cell Distribution Width 15.3 H Platelet Count 430 H Mean Platelet Volume 9.7 Immature Granulocytes % 0.800 H Neutrophils % 70.4 Lymphocytes % 13.9 L Monocytes % 9.1 Eosinophils % 5.5 Basophils % 0.3 Nucleated Red Blood Cells % 0.0 Immature Granulocytes # 0.090 H Neutrophils # 7.7 H Lymphocytes # 1.5 Monocytes # 1.0 H Eosinophils # 0.6 H Basophils # 0.0 Nucleated Red Blood Cells # 0.0 Sodium Level 144 Potassium Level 4.1 Chloride Level 113 H Carbon Dioxide Level 23 Anion Gap 8 Blood Urea Nitrogen 23 H Creatinine 1.71 H Est Glomerular Filtrat Rate mL/min Glucose Level 132 Calcium Level 8.5 Magnesium Level 1.9 Medications Current Medications IV Flush (NS 3 ml) 3 ml PER PROTOCOL IV ; Start 09/23/18 at 18:30 Aspirin (Halfprin) 81 mg DAILY PO Last administered on 09/26/18at 08:31; Admin Dose 81 MG; Start 09/24/18 at 09:00 Atorvastatin Calcium (Lipitor) 20 mg QHS PO Last administered on 09/25/18at 21:13; Admin Dose 20 MG; Start 09/23/18 at 21:00 Gabapentin (Neurontin) 300 mg BID PO Last administered on 09/26/18 08:31; Admin Dose 300 MG; Start 09/23/18 at 21:00 Pantoprazole (Protonix Tab) 40 mg DAILY@06 PO Last administered on 09/26/18 0 5:54; Admin Dose 40 MG; Start 09/24/18 at 06:00 Levalbuterol (Xopenex Neb) 1.25 mg Q4H RESP THERAPY PRN HHN SHORTNESS OF BREATH; Start 09/23/18 at 23:30 Ipratropium [place] (Atrovent 0.02% (Neb)) 0.5 mg Q4H RESP THERAPY PRN HHN SHORTNESS OF BREATH; Start 09/23/18 at 23:30 Benzonatate (Tessalon) 100 mg TID PRN PO COUGH Last administered on 09/26/18 05:58; Admin Dose 100 MG; Start 09/24/18 at 22:30 Hydralazine HCl (Apresoline) 25 mg BID PO Last administered on 09/26/18 09:53; Admin Dose 25 MG; Start 09/25/18 at 21:00 Enoxaparin Sodium (Lovenox) 30 mg DAILY SC Last administered on 09/26/18 08:33; Admin Dose 30 MG; Start 09/26/18 at 09:00 Metoprolol Succinate (Toprol Xl) 25 mg DAILY PO Last administered on 09/26/18 09:52; Admin Dose 25 MG; Start 09/26/18 at 09:00 Piperacillin Sod/ Tazobactam Sod 100 ml @ 200 mls/hr Q8 IVPB Last administered on 09/26/18 05:54; Admin Dose 200 MLS/HR; Start 09/25/18 at 15:00 Alprazolam (Xanax) 2 mg QHS PO Last administered on 09/25/18 22:29; Admin Dose 2 MG; Start 09/25/18 at 22:00 Acetaminophen (Tylenol Tab) 650 mg Q6H PRN PO MILD PAIN(1-3)OR ELEVATED TEMP Last administered on 09/25/18 22:31; Admin Dose 650 MG; Start 09/25/18 at 22:30 Miscellaneous Information (* Miscellaneous Pharmacy Order) can you please ens... ONCE XX ; Start 09/26/18 at 09:00 Assessment/Plan Hospital Course (Demo Recall) Assessment 1. Acute hypoxemic respiratory failure likely secondary to commute acquired pneumonia possible aspiration component 2. Renal insufficiency Plan 1. Continue antibiotics 2. Physical therapy evaluation ambulate 3. Decrease O2 as tolerated 4. Bronchodilator treatment 5. Outpatient follow-up with me for PFTs. VENKAT MENDEZ MD, [facility] Sep 26, 2018 12:32
--- NOTE | 2018-09-26 13:41 | RADRPT ---
Echocardiogram Report Patient Name: ARMANDO BARAJASPatient ID: [id number] : 1940 (78y 7m)Study Date: 09/26/2018 9:04:26 AM Gender: FAccession #: [id number] Tech: [facility] Location: [id number] Ref.Physician: LEXIE BOOGIE Height(Cm): BSA: Weight(Kg): Quality: AdequateAccount #: Procedures: Echocardiographic Report: Transthoracic echocardiogram with complete 2D, M-Mode, and doppler examination. Indications: Pulmonary Hypertension. Measurements: 2D/M Mode Doppler Measurement Value Normal Range Measurement Value Normal Range LVIDd 2D 3.4 [ 3.8 - 5.2 ] cm AV Peak Enoch 1.7 [ 100.0 - 170.0 ] cm/sec LVIDs 2D 1.9 [ 2.2 - 3.5 ] cm AV Peak PG 12.0 [ 2.0 - 9.0 ] mmHg LVPWd 2D 1.1 [ 0.6 - 0.9 ] cm LVOT Peak Enoch 1.4 [ 70.0 - 110.0 ] cm/sec IVSd 2D 1.3 [ 0.6 - 0.9 ] cm LVOT Peak PG 7.0 [ 2.0 - 6.0 ] mmHg AoR Diam 2D 2.9 [ 2.3 - 3.1 ] cm MV E Peak Enoch 0.6 [ 60.0 - 130.0 ] cm/sec EDV 2D 48.8 [ 46.0 - 106.0 ] ml MV A Peak Enoch 1.1 [ 100.0 - 120.0 ] cm/sec ESV 2D 11.0 [ 14.0 - 42.0 ] ml MV E/A 0.6 [ 0.8 - 1.5 ] ratio EF 2D 77.5 [ 54.0 - 74.0 ] percent MV Decel Time 239 [ 104 - 258 ] msec LA Dimen 2D 3.4 [ 2.7 - 3.8 ] cm MV E/A 0.6 [ 0.8 - 1.5 ] ratio TR Peak Enoch 2.9 [ 100.0 - 280.0 ] cm/sec TR Peak PG 34.0 mmHg RVSP 37.0 [ 10.0 - 36.0 ] mmHg RA Pressure 3.0 mmHg Findings: Left Ventricle: Normal left ventricular systolic function. Normal left ventricular cavity size. Mild concentric left ventricular hypertrophy. Ejection fraction is visually estimated at 60 %. Tissue Doppler/Mitral Doppler indices are consistent with impaired relaxation (Stage I diastolic dysfunction). Right Ventricle: Mild enlargement of right ventricle. Moderate right ventricular hypokinesis. Flattened Septum ("D"shaped left ventricle) consistent with RV volume/pressure overload. Left Atrium: The left atrium is normal in size. Right Atrium: There is moderate enlargement of right atrium. Mitral Valve: Normal appearance and function of the mitral valve with trace physiologic regurgitation. Aortic Valve: No significant aortic stenosis or insufficiency. Aortic cusps appear mildly calcified. Tricuspid Valve: Normal appearance of the tricuspid valve. Estimated peak PA systolic pressure 37 mmHg. There is mild tricuspid regurgitation. Pulmonic Valve: Normal pulmonic valve appearance. Pericardium: Normal pericardium with no significant pericardial effusion. Aorta: Normal aortic root. IVC: Normal size and normal respiratory collapse consistent with normal right atrial pressure. Conclusions: Normal left ventricular systolic function. Normal left ventricular cavity size. Mild concentric left ventricular hypertrophy. Ejection fraction is visually estimated at 60 %. Tissue Doppler/Mitral Doppler indices are consistent with impaired relaxation (Stage I diastolic dysfunction). Mild enlargement of right ventricle. Moderate right ventricular hypokinesis. Flattened Septum ("D"shaped left ventricle) consistent with RV volume/pressure overload. The left atrium is normal in size. There is moderate enlargement of right atrium. Estimated peak PA systolic pressure 37 mmHg - given eccentric tricuspid regurgitation jet, this could be under estimated. There is mild tricuspid regurgitation. No significant aortic stenosis or insufficiency. Normal pericardium with no significant pericardial effusion. Electronically Signed By: Tariq Hernandez 2018-09-26 13:40:31 PST
[2018-09-26 13:59] VITALS: BP 118/68; PULSE 92; RESP 22
--- NOTE | 2018-09-26 15:19 | CONS ---
DATE OF ADMISSION: 09/25/2018 DATE OF CONSULTATION: 09/26/2018 TYPE OF CONSULTATION: Nephrology. REASON FOR CONSULTATION: Acute injury. PHYSICIAN REQUESTING CONSULT: Connor Lee MD HISTORY OF PRESENT ILLNESS: This is a 78-year-old female with past medical history of hypertension, history of dyslipidemia, questionable history of CKD, who presents to [facility] fo r generalized weakness and reports of anorexia. The patient's history per daughter reported that the patient 2 days prior to admission complained of mild general weakness. The patient had a fall, did not hit her head. The patient, however, continued to have progressive weakness and as a result, she came to the emergency room. Upon arrival, the patient was noted to be hypertensive. The patient was subsequently admitted to med/surg and started on antibiotic therapy for multifocal pneumonia. The p atient was seen by brusher machine. In terms of patient's renal history, the patient has some underlying CKD and does not know his baseli ne creatinine. The patient's renal function and urinalysis had declined during the time that the pat ient has been in course of vancomycin. The patient did receive IV fluid. There have been noted hemo dynamic fluctuations. There have been no reports of any hemoptysis, hematemesis or hematochezia. PAST MEDICAL HISTORY: As stated above, history of probable CKD, history of hypertension, dyslipidemi a. PAST SURGICAL HISTORY: Reviewed. ALLERGIES: REVIEWED. FAMILY HISTORY: No family history of kidney disease. SOCIAL HISTORY: Does not drink, smoke or do drugs. MEDICATIONS: Have been reviewed. REVIEW OF SYSTEMS: A 14-point review of systems conducted. Pertinent positives stated in HPI, other solis negative. PHYSICAL EXAMINATION: VITAL SIGNS: Blood pressure is 118/68, respiration 19, pulse 103, temperature 98.9. HEENT: Head is normocephalic. NECK: Supple. HEART: Regular rate. LUNGS: Show diminished breath sounds at the base. ABDOMEN: Soft, nontender to palpation without rebound or guarding. EXTREMITIES: Negative for clubbing, cyanosis. No edema. DERMATOLOGIC: No rashes. MUSCULOSKELETAL: No joint effusion. NEUROLOGIC: No focal deficits. LABORATORY DATA: Shows urinalysis from 09/23/2018 shows positive hyaline cast. Sodium 144, potassiu m 4.1, BUN 23, creatinine 1.71. White count 10.9, hemoglobin 9.4. The patient's ABG was reviewed. DIAGNOSTIC DATA: CT scan of the chest that was performed showed extensive infiltrates suggesting mul tifocal pneumonia and cardiomegaly possible pulmonary hypertension. Chest x-ray from 09/26/2018 show ed cardiomegaly and worsening infiltrates. A 2D echo was also performed which showed a normal IVC wi th collapse. ASSESSMENT AND PLAN: This is a 78-year-old female who presents with: 1. Nonoliguric acute kidney injury, chronic kidney disease with unknown baseline creatinine. Etiolo gy of acute kidney injury is possible multifactorial secondary to septic acute kidney injury and hemo dynamics. Initial urinalysis was bland. No evidence of active sediment. Possibility of tubular inj ury is a consideration due to ongoing sepsis, antibiotic therapy and hemodynamic fluctuations. Recom mendation at this point is to continue current treatment plan. Continue supportive care, renally dos e all meds, monitor and avoid significant hemodynamic fluctuations. May consider fluid challenge if renal function should further decline. We will monitor closely. Please note that 2D echo was reviewe d. It did show evidence of a possible right ventricular overload; however the patient's IVC is not d ilated. Therefore, findings are not fully consistent with cardiorenal syndrome. We will have her co ntinue to monitor. 2. Anemia. Monitor hemoglobin and hematocrit levels. 3. Mineral bone disorder. Monitor calcium and phosphorus levels. 4. Sepsis secondary to multifocal pneumonia. Continue current antibiotic regimen. Follow up with p ulmonary for further recommendations. 5. Acute hypoxic respiratory failure secondary to pneumonia. Continue antibiotic regimen. Continue bronchodilator. Continue physical therapy. 6. Pulmonary nodule. Continue to monitor. 7. Dyslipidemia. Continue statin therapy. 8. Hypertension. Blood pressure is currently well controlled. Continue to monitor. 9. History of pulmonary hypertension. The patient's 2D echo was reviewed, which showed moderate rig ht ventricular hypokinesis, moderate enlargement right atrium, mild tricuspid regurgitation, pulmonar y artery pressures of 35 mmHg, ejection fraction 60%. We will continue to monitor and follow up with cardiology. Thank you, Dr. Lee, for this interesting consult. t will be a pleasure to follow patient with you th roughout the hospital course. Dictated By: KAT MARIA DO NR/SURY Conf#: [id number] [facility]#: [id number] CC: VENKAT MENDEZ MD; NITA BERRIOS MD;*[facility] [place]*
[2018-09-26 20:01] VITALS: BP 142/85; PULSE 88; RESP 20
[2018-09-26] MEDS: ATORVASTATIN 20 MG TAB PO SCH (21:41)
[2018-09-26] MEDS: ALPRAZOLAM 0.25 MG TAB PO SCH (21:42)
[2018-09-27 02:00] VITALS: BP 118/67; PULSE 95; RESP 19
[2018-09-27] MEDS: PANTOPRAZOLE (EC) 40 MG TAB PO SCH (05:52)
[2018-09-27] MEDS: PIPER-TAZO 3.375 GM IV (PMX) 100 ML IVPB SCH ×3 (05:52→21:37)
[2018-09-27 07:28] VITALS: BP 131/62; PULSE 80; RESP 18
[2018-09-27] MEDS: ASPIRIN (EC) 81 MG TAB PO SCH (08:59)
[2018-09-27] MEDS: GABAPENTIN 300 MG CAP PO SCH ×2 (08:59→21:37)
[2018-09-27] MEDS: METOPROLOL (XL) 25 MG TAB PO SCH (09:00)
[2018-09-27] MEDS: HEPARIN 5,000 UNIT/1 ML VIAL SC SCH ×2 (09:06→21:46)
--- NOTE | 2018-09-27 11:34 | PN ---
DATE: 09/27/2018 DATE OF SERVICE: 09/27/2018 SUBJECTIVE: The patient is stable, no events overnight. OBJECTIVE: VITAL SIGNS: Blood pressure is 131/62, pulse 80, respiration 19, temperature 98.6. HEENT: Head is normocephalic. NECK: Supple. HEART: Regular rate. LUNGS: Show diminished breath sounds at base. ABDOMEN: Soft, nontender to palpation without rebound or guarding. EXTREMITIES: Negative for clubbing, cyanosis, no edema. DERMATOLOGIC: No rashes. MUSCULOSKELETAL: No joint effusion. NEUROLOGIC: No change in exam. MEDICATIONS: Reviewed. LABORATORY DATA: Shows a UA which is negative. ____ greater than 1%. Sodium 143, BUN is 18, creati nine 1.53. White count 9.4, hemoglobin 9.5. White count is 456. ASSESSMENT AND PLAN: 1. Nonoliguric acute kidney injury on top of chronic kidney disease with unknown baseline creatinine . Etiology of acute kidney injury is multifactorial secondary to hemodynamics, questionable sepsis. Patient's urinalysis was reviewed, no active sediment. Renal ultrasound was unremarkable. Renal fu nction has improved in last 24 hours. At this point, I would continue current treatment plan. Zelda nue supportive care, renally dose all meds, continue antibiotic therapy. We will monitor closely. 2. Anemia. Monitor hemoglobin and hematocrit. 3. Mineral bone syndrome. Monitor calcium and phosphorus levels. 4. Sepsis secondary to multifocal pneumonia. Continue current antibiotic regimen. 5. Acute hypoxemic respiratory failure secondary to pneumonia. Continue current antibiotic regimen. Continue bronchodilators. 6. Pulmonary nodule. Continue to monitor. 7. Azotemia, continue statin therapy. 8. Hypertension. Continue current blood pressure regimen. 9. Pulmonary hypertension. The patient's 2D echo was reviewed. Continue to monitor. Follow up wit h cardiology recommendations. Dictated By: KAT MARIA DO NR/NTS Conf#: [id number] DID#: [id number] CC: VENKAT MENDEZ MD; NITA BERRIOS MD;*End*
--- NOTE | 2018-09-27 12:30 | CONS ---
Consult Date/Type/Reason Admit Date/Time Sep 25, 2018 at 14:23 Initial Consult Date Type of Consult Pulmonary Date/Time of Note DATE: 09/27/18 TIME: 12:29 Subjective Clinically improved although ongoing bilateral infiltrates on chest x-ray noted. Objective Vital Signs Date Temp Pulse Resp B/P (MAP) Pulse Ox O2 O2 Flow FiO2 Time Delivery Rate 09/27/18 Nasal 3.0 08:20 Cannula 09/27/18 98.6 80 18 131/62 92 07:28 (85) Intake and Output 09/26/18 09/26/18 09/27/18 1515:00 23:00 07:00 IntakeIntake Total 1520 ml 680 ml 400 ml OutputOutput Total 400 ml BalanceBalance 1520 ml 280 ml 400 ml Exam GENERAL: Elderly appearing lady comfortable at rest VITAL SIGNS: per chart NECK: Supple. No JVD or lymphadenopathy. CARDIAC EXAM: S1, S2. No added sounds or murmurs. CHEST: clear bilaterally, No added sounds, rales or wheezes ABDOMEN: Soft, nontender. No guarding or rebound. EXTREMITIES: No cyanosis, clubbing or edema. NEUROLOGIC: Generalized weakness. No focal deficits. Results/Medications Result Diagram: 09/27/18 0451 09/27/18 0451 Results 24 hrs Laboratory Tests Test 09/26/18 16:20 09/27/18 04:51 Urine Color STRAW Urine Clarity CLEAR Urine pH 5 Urine Specific [place] 1.010 Urine Ketones NEGATIVE Urine Nitrite NEGATIVE Urine Bilirubin NEGATIVE Urine Urobilinogen 0.2 E.U./dL Urine Leukocyte Esterase NEGATIVE Urine Microscopic RBC 0 Urine Microscopic WBC 0 Urine Hemoglobin NEGATIVE Urine Random Creatinine 35.64 Urine Random Sodium 41 Urine Glucose NEGATIVE Urine Total Protein NEGATIVE White Blood Count 11.4 H Red Blood Count 3.28 L Hemoglobin 9.5 L Hematocrit 30.3 L Mean Corpuscular Volume 92.4 Mean Corpuscular Hemoglobin 29.0 Mean Corpuscular Hemoglobin Concent 31.4 L Red Cell Distribution Width 15.6 H Platelet Count 456 H Mean Platelet Volume 9.5 Immature Granulocytes % 0.700 H Neutrophils % 73.4 Lymphocytes % 12.1 L Monocytes % 7.4 Eosinophils % 5.9 Basophils % 0.5 Nucleated Red Blood Cells % 0.0 Immature Granulocytes # 0.080 H Neutrophils # 8.3 H Lymphocytes # 1.4 Monocytes # 0.8 Eosinophils # 0.7 H Basophils # 0.1 Nucleated Red Blood Cells # 0.0 Sodium Level 143 Potassium Level 4.1 Chloride Level 114 H Carbon Dioxide Level 21 Anion Gap 8 Blood Urea Nitrogen 18 Creatinine 1.53 H Est Glomerular Filtrat Rate mL/min Glucose Level 133 Calcium Level 8.5 Medications Current Medications IV Flush (NS 3 ml) 3 ml PER PROTOCOL IV ; Start 09/23/18 at 18:30 Aspirin (Halfprin) 81 mg DAILY PO Last administered on 09/27/18 08:59; Admin Dose 81 MG; Start 09/24/18 at 09:00 Atorvastatin Calcium (Lipitor) 20 mg QHS PO Last administered on 09/26/18 21:41; Admin Dose 20 MG; Start 09/23/18 at 21:00 Gabapentin (Neurontin) 300 mg BID PO Last administered on 09/27/18 08:59; Admin Dose 300 MG; Start 09/23/18 at 21:00 Pantoprazole (Protonix Tab) 40 mg DAILY@06 PO Last administered on 09/27/18 05:52; Admin Dose 40 MG; Start 09/24/18 at 06:00 Levalbuterol (Xopenex Neb) 1.25 mg Q4H RESP THERAPY PRN HHN SHORTNESS OF BREATH; Start 09/23/18 at 23:30 Ipratropium [place] (Atrovent 0.02% (Neb)) 0.5 mg Q4H RESP THERAPY PRN HHN SHORTNESS OF BREATH; Start 09/23/18 at 23:30 Benzonatate (Tessalon) 100 mg TID PRN PO COUGH Last administered on 09/26/18at 14:36; Admin Dose 100 MG; Start 09/24/18 at 22:30 Hydralazine HCl (Apresoline) 25 mg BID PO Last administered on 09/27/18 09:00; Admin Dose 25 MG; Start 09/25/18 at 21:00 Metoprolol Succinate (Toprol Xl) 25 mg DAILY PO Last administered on 09/27/18 09:00; Admin Dose 25 MG; Start 09/26/18 at 09:00 Piperacillin Sod/ Tazobactam Sod 100 ml @ 200 mls/hr Q8 IVPB Last administered on 09/27/18 05:52; Admin Dose 200 MLS/HR; Start 09/25/18 at 15:00 Alprazolam (Xanax) 2 mg QHS PO Last administered on 09/26/18at 21:42; Admin Dose 2 MG; Start 09/25/18 at 22:00 Acetaminophen (Tylenol Tab) 650 mg Q6H PRN PO MILD PAIN(1-3)OR ELEVATED TEMP Last administered on 09/25/18at 22:31; Admin Dose 650 MG; Start 09/25/18 at 22:30 Miscellaneous Information (* Miscellaneous Pharmacy Order) can you please ens... ONCE XX ; Start 09/26/18 at 09:00 Heparin Sodium (Porcine) (Heparin (5000 Units/1ml)) 5,000 unit BID SC Last administered on 09/27/18at 09:06; Admin Dose 5,000 UNIT; Start 09/27/18 at 09:00 Assessment/Plan Hospital Course (Demo Recall) Assessment 1. Acute hypoxemic respiratory failure likely secondary to commute acquired pneumonia possible aspiration component 2. Renal insufficiency 3. Differential of infiltrates does include opportunistic infection including fungal and mycobacterium and possible bronchiolitis obliterans organizing pneumonia. Plan 1. Continue antibiotics, empiric steroid trial 2. Physical therapy evaluation ambulate 3. Decrease O2 as tolerated 4. Bronchodilator treatment 5. Outpatient follow-up with me for PFTs. [facility]Z [facility], [facility] Sep 27, 2018 12:30
[2018-09-27] MEDS: FUROSEMIDE 40 MG INJ IV SCH (13:35)
[2018-09-27] MEDS: METHYLPREDNISOLONE 40 MG INJ IV SCH ×2 (13:35→21:36)
[2018-09-27 14:51] VITALS: BP 150/70; PULSE 97; RESP 16
--- NOTE | 2018-09-27 16:25 | PN ---
Date/Time of Note Date/Time of Note DATE: 09/27/18 TIME: 16:23 Assessment/Plan VTE Prophylaxis Risk score (from Ns)>0 risk: 5 SCD applied (from Ns): Yes Pharmacological prophylaxis: NA/contraindicated Pharm contraindication: low risk/ambulating Lines/Catheters IV Catheter Type (from Nrs): Saline Lock Urinary Cath still in place: No Assessment/Plan Assessment/Plan 1. debility and lethargy and poor apetitie likely 2/2 #2 -Improved, has consented to short term SNF placement 2. Diffuse multifocal PNA -concerning for chronic silent aspiration -ST eval -benefit from aggressive IV abx 3. Pulm nodule - had to see on CT, will need f/u CT after treatment of PNA 4. MANAV versus CKD -no obstruction on USS -likely underlying CKD -Renally dose all meds. -Nephro consult 5. dyslipidemia -home statin 6. HTN - BP control a little too tight on current regimen, may need reevaluation of antihypertensives 7. AREN : -PRN xanax as she was taking at home 8. Pul HTN -secondary? -will get echo as well Dispo: -based on CT findings, will benefit from more aggressive abx treatment -will try to convince patient to go to SNF for short term rehab for PT and ST as well as for IV abx treatment of pna Result Diagram: 09/27/18 04509/27/18450 Subjective 24 Hr Interval Summary Free Text/Dictation No acute overnight events. Patient still hypoxic requiring 3L NC. Otherwise feeling well, wants to go home. Exam/Review of Systems Exam Vitals Vital Signs Date Temp Pulse Resp B/P (MAP) Pulse Ox O2 O2 Flow FiO2 Time Delivery Rate 09/27/18 98.7 97 16 150/70 94 14:51 (96) 09/27/18 Nasal 3.0 08:20 Cannula Intake and Output 09/26/18 09/26/18 09/27/18 1414:59 22:59 06:59 IntakeIntake Total 1520 ml 680 ml 400 ml OutputOutput Total 400 ml BalanceBalance 1520 ml 280 ml 400 ml Exam Constitutional: alert, oriented, elderly obese, no distress, communicative, but speech is slow Head: atraumatic, normocephalic Neck: non-tender, supple Respiratory: coarse crackles in upper airway (throat) suggestive of phlegm but clear to auscultation with fairly good a/e in in the lower lobes Cardiovascular: regular rate and rhythm Gastrointestinal: S/ NT / ND / +BS Extremities: no edema, good radial pulses Results Results 24hrs Laboratory Tests Test 09/27/18 04:51 White Blood Count 11.4 H Red Blood Count 3.28 L Hemoglobin 9.5 L Hematocrit 30.3 L Mean Corpuscular Volume 92.4 Mean Corpuscular Hemoglobin 29.0 Mean Corpuscular Hemoglobin Concent 31.4 L Red Cell Distribution Width 15.6 H Platelet Count 456 H Mean Platelet Volume 9.5 Immature Granulocytes % 0.700 H Neutrophils % 73.4 Lymphocytes % 12.1 L Monocytes % 7.4 Eosinophils % 5.9 Basophils % 0.5 Nucleated Red Blood Cells % 0.0 Immature Granulocytes # 0.080 H Neutrophils # 8.3 H Lymphocytes # 1.4 Monocytes # 0.8 Eosinophils # 0.7 H Basophils # 0.1 Nucleated Red Blood Cells # 0.0 Sodium Level 143 Potassium Level 4.1 Chloride Level 114 H Carbon Dioxide Level 21 Anion Gap 8 Blood Urea Nitrogen 18 Creatinine 1.53 H Est Glomerular Filtrat Rate mL/min Glucose Level 133 Calcium Level 8.5 Medications Medication Current Medications IV Flush (NS 3 ml) 3 ml PER PROTOCOL IV ; Start 09/23/18 at 18:30 Aspirin (Halfprin) 81 mg DAILY PO Last administered on 09/27/18at 08:59; Admin Dose 81 MG; Start 09/24/18 at 09:00 Atorvastatin Calcium (Lipitor) 20 mg QHS PO Last administered on 09/26/18at 21:41; Admin Dose 20 MG; Start 09/23/18 at 21:00 Gabapentin (Neurontin) 300 mg BID PO Last administered on 09/27/18at 08:59; Admin Dose 300 MG; Start 09/23/18 at 21:00 Pantoprazole (Protonix Tab) 40 mg DAILY@06 PO Last administered on 09/27/18at 05:52; Admin Dose 40 MG; Start 09/24/18 at 06:00 Levalbuterol (Xopenex Neb) 1.25 mg Q4H RESP THERAPY PRN HHN SHORTNESS OF BREATH; Start 09/23/18 at 23:30 Ipratropium [place] (Atrovent 0.02% (Neb)) 0.5 mg Q4H RESP THERAPY PRN HHN SHORTNESS OF BREATH; Start 09/23/18 at 23:30 Benzonatate (Tessalon) 100 mg TID PRN PO COUGH Last administered on 09/26/18 14:36; Admin Dose 100 MG; Start 09/24/18 at 22:30 Hydralazine HCl (Apresoline) 25 mg BID PO Last administered on 09/27/18 09:00; Admin Dose 25 MG; Start 09/25/18 at 21:00 Metoprolol Succinate (Toprol Xl) 25 mg DAILY PO Last administered on 09/27/18 09:00; Admin Dose 25 MG; Start 09/26/18 at 09:00 Piperacillin Sod/ Tazobactam Sod 100 ml @ 200 mls/hr Q8 IVPB Last administered on 09/27/18 13:36; Admin Dose 200 MLS/HR; Start 09/25/18 at 15:00 Alprazolam (Xanax) 2 mg QHS PO Last administered on 09/26/18 21:42; Admin Dose 2 MG; Start 09/25/18 at 22:00 Acetaminophen (Tylenol Tab) 650 mg Q6H PRN PO MILD PAIN(1-3)OR ELEVATED TEMP Last administered on 09/25/18 22:31; Admin Dose 650 MG; Start 09/25/18 at 22:30 Miscellaneous Information (* Miscellaneous Pharmacy Order) can you please ens... ONCE XX ; Start 09/26/18 at 09:00 Heparin Sodium (Porcine) (Heparin (5000 Units/1ml)) 5,000 unit BID SC Last administered on 09/27/18 09:06; Admin Dose 5,000 UNIT; Start 09/27/18 at 09:00 Furosemide (Lasix) 40 mg DAILY IV Last administered on 09/27/18 13:35; Admin Dose 40 MG; Start 09/27/18 at 13:00 Methylprednisolone Sodium Succinate (Solu-Medrol) 40 mg Q8 IV Last administered on 09/27/18 13:35; Admin Dose 40 MG; Start 09/27/18 at 14:00 NITA BERRIOS MD Sep 27, 2018 16:25
[2018-09-27 20:00] VITALS: BP 147/72; PULSE 104; RESP 18
[2018-09-27] MEDS: ATORVASTATIN 20 MG TAB PO SCH (21:37)
[2018-09-27] MEDS: ALPRAZOLAM 0.25 MG TAB PO SCH (21:39)
[2018-09-28 02:00] VITALS: BP 141/74; PULSE 97; RESP 18
[2018-09-28] MEDS: METHYLPREDNISOLONE 40 MG INJ IV SCH ×3 (06:22→21:59)
[2018-09-28] MEDS: PANTOPRAZOLE (EC) 40 MG TAB PO SCH (06:23)
[2018-09-28] MEDS: PIPER-TAZO 3.375 GM IV (PMX) 100 ML IVPB SCH ×3 (06:23→21:59)
[2018-09-28 07:24] VITALS: BP 154/83; PULSE 91; RESP 18
[2018-09-28] MEDS: ASPIRIN (EC) 81 MG TAB PO SCH (09:17)
[2018-09-28] MEDS: GABAPENTIN 300 MG CAP PO SCH ×2 (09:17→21:58)
[2018-09-28] MEDS: METOPROLOL (XL) 25 MG TAB PO SCH (09:17)
[2018-09-28] MEDS: FUROSEMIDE 40 MG INJ IV SCH (09:19)
[2018-09-28] MEDS: HEPARIN 5,000 UNIT/1 ML VIAL SC SCH ×2 (09:22→22:00)
[2018-09-28] MEDS: BENZONATATE 100 MG CAP PO PRN (09:28)
--- NOTE | 2018-09-28 09:57 | PN ---
DATE: 09/28/2018 SUBJECTIVE: The patient is stable, no events noted. OBJECTIVE: VITAL SIGNS: Blood pressure is 154/83, pulse 91, respiration 18, temperature 97.8. HEENT: Head is normocephalic. NECK: Supple. HEART: Regular rate. LUNGS: Show diminished breath sounds at the base. ABDOMEN: Soft, nontender to palpation without rebound or guarding. EXTREMITIES: Negative for clubbing, cyanosis, no edema. DERMATOLOGIC: No rashes. MUSCULOSKELETAL: No joint effusion. NEUROLOGIC: No change in exam. MEDICATIONS: Reviewed. LABORATORY DATA: From 09/28/2018 was reviewed. The patient has a BUN of 20, creatinine 1.53. ASSESSMENT AND PLAN: 1. Nonoliguric acute kidney injury on top of chronic kidney disease with unknown baseline creatinine . Etiology of acute kidney injury is secondary to hemodynamics, questionable sepsis. The patient's renal function appears to be stabilizing around a creatinine of 1.5 mg/dL. At this point, continue c urrent treatment plan, supportive care, renally dose all medications. 2. Anemia. Monitor hemoglobin and hematocrit levels. 3. Mineral bone disorder, monitor calcium and phosphorus levels. 4. Sepsis secondary to pneumonia. Continue current antibiotic regimen. 5. Acute hypoxemic respiratory failure secondary to pneumonia. The patient is improving. Continue bronchodilators, supplemental oxygen. Continue antibiotic regimen. 6. Pulmonary nodule. Continue to monitor. 7. Dyslipidemia. Continue statin therapy. 8. History of pulmonary hypertension. The patient's 2D echo was reviewed. Continue to monitor. Dictated By: KAT MARIA DO NR/NTS Conf#: [id number] DID#: [id number] CC: VENKAT MENDEZ MD; NITA BERRIOS MD;*EndCC*
--- NOTE | 2018-09-28 10:36 | CONS ---
Consult Date/Type/Reason Admit Date/Time Sep 25, 2018 at 14:23 Initial Consult Date Type of Consult Pulmonary Date/Time of Note DATE: 09/28/18 TIME: 10:35 Subjective Better today. Off supplemental O2 states her coughing and breathing have improved. Objective Vital Signs Date Temp Pulse Resp B/P (MAP) Pulse Ox O2 O2 Flow FiO2 Time Delivery Rate 09/28/18 97.8 91 18 154/83 94 07:24 (106) 09/27/18 Nasal 3.0 22:00 Cannula Intake and Output 09/27/18 09/27/18 09/28/18 1515:00 23:00 07:00 IntakeIntake Total 1060 ml 420 ml 100 ml OutputOutput Total 150 ml BalanceBalance 910 ml 420 ml 100 ml Exam GENERAL: Elderly appearing lady comfortable at rest VITAL SIGNS: per chart NECK: Supple. No JVD or lymphadenopathy. CARDIAC EXAM: S1, S2. No added sounds or murmurs. CHEST: clear bilaterally, No added sounds, rales or wheezes ABDOMEN: Soft, nontender. No guarding or rebound. EXTREMITIES: No cyanosis, clubbing or edema. NEUROLOGIC: Generalized weakness. No focal deficits. Results/Medications Result Diagram: 09/28/18 0504 09/28/18 0504 Results 24 hrs Laboratory Tests Test 09/28/18 05:04 09/28/18 08:20 White Blood Count 10.2 Red Blood Count 3.42 L Hemoglobin 10.1 L Hematocrit 30.8 L Mean Corpuscular Volume 90.1 Mean Corpuscular Hemoglobin 29.5 Mean Corpuscular Hemoglobin Concent 32.8 Red Cell Distribution Width 15.4 H Platelet Count 492 H Mean Platelet Volume 9.7 Immature Granulocytes % 1.100 H Neutrophils % 83.6 H Lymphocytes % 8.3 L Monocytes % 6.5 Eosinophils % 0.3 Basophils % 0.2 Nucleated Red Blood Cells % 0.0 Immature Granulocytes # 0.110 H Neutrophils # 8.5 H Lymphocytes # 0.9 Monocytes # 0.7 Eosinophils # 0.0 Basophils # 0.0 Nucleated Red Blood Cells # 0.0 Sodium Level 143 Potassium Level 4.1 Chloride Level 109 Carbon Dioxide Level 24 Anion Gap 10 Blood Urea Nitrogen 20 Creatinine 1.53 H Est Glomerular Filtrat Rate mL/min Glucose Level 124 Calcium Level 8.5 Bedside Glucose 163 Medications Current Medications IV Flush (NS 3 ml) 3 ml PER PROTOCOL IV ; Start 09/23/18 at 18:30 Aspirin (Halfprin) 81 mg DAILY PO Last administered on 09/28/18 09:17; Admin Dose 81 MG; Start 09/24/18 at 09:00 Atorvastatin Calcium (Lipitor) 20 mg QHS PO Last administered on 09/27/18 21:37; Admin Dose 20 MG; Start 09/23/18 at 21:00 Gabapentin (Neurontin) 300 mg BID PO Last administered on 09/28/18 09:17; Admin Dose 300 MG; Start 09/23/18 at 21:00 Pantoprazole (Protonix Tab) 40 mg DAILY@06 PO Last administered on 09/28/18 06:23; Admin Dose 40 MG; Start 09/24/18 at 06:00 Levalbuterol (Xopenex Neb) 1.25 mg Q4H RESP THERAPY PRN HHN SHORTNESS OF BREATH; Start 09/23/18 at 23:30 Ipratropium [place] (Atrovent 0.02% (Neb)) 0.5 mg Q4H RESP THERAPY PRN HHN SHORTNESS OF BREATH; Start 09/23/18 at 23:30 Benzonatate (Tessalon) 100 mg TID PRN PO COUGH Last administered on 09/28/18 09:28; Admin Dose 100 MG; Start 09/24/18 at 22:30 Hydralazine HCl (Apresoline) 25 mg BID PO Last administered on 09/28/18 09:18; Admin Dose 25 MG; Start 09/25/18 at 21:00 Metoprolol Succinate (Toprol Xl) 25 mg DAILY PO Last administered on 09/28/18 09:17; Admin Dose 25 MG; Start 09/26/18 at 09:00 Piperacillin Sod/ Tazobactam Sod 100 ml @ 200 mls/hr Q8 IVPB Last administered on 09/28/18 06:23; Admin Dose 200 MLS/HR; Start 09/25/18 at 15:00 Alprazolam (Xanax) 2 mg QHS PO Last administered on 09/27/18 21:39; Admin Dose 2 MG; Start 09/25/18 at 22:00 Acetaminophen (Tylenol Tab) 650 mg Q6H PRN PO MILD PAIN(1-3)OR ELEVATED TEMP Last administered on 09/25/18at 22:31; Admin Dose 650 MG; Start 09/25/18 at 22:30 Miscellaneous Information (* Miscellaneous Pharmacy Order) can you please ens... ONCE XX ; Start 09/26/18 at 09:00 Heparin Sodium (Porcine) (Heparin (5000 Units/1ml)) 5,000 unit BID SC Last administered on 09/28/18at 09:22; Admin Dose 5,000 UNIT; Start 09/27/18 at 09:00 Furosemide (Lasix) 40 mg DAILY IV Last administered on 09/28/18at 09:19; Admin Dose 40 MG; Start 09/27/18 at 13:00 Methylprednisolone Sodium Succinate (Solu-Medrol) 40 mg Q8 IV Last administered on 09/28/18at 06:22; Admin Dose 40 MG; Start 09/27/18 at 14:00 Assessment/Plan Hospital Course (Demo Recall) Assessment 1. Acute hypoxemic respiratory failure likely secondary to commute acquired pneumonia possible aspiration component 2. Renal insufficiency 3. Differential of infiltrates does include opportunistic infection including fungal and mycobacterium and possible bronchiolitis obliterans organizing pneumonia. Plan 1. Continue antibiotics, empiric steroid trial 2. Physical therapy evaluation ambulate 3. Decrease O2 as tolerated 4. Bronchodilator treatment 5. Outpatient follow-up with me for PFTs. DC planning okay with me. Needs steroid taper outpatient CT scan and follow-up with me. VENKAT [facility]ENDEZ MD, [facility] Sep 28, 2018 10:36
[2018-09-28 13:28] VITALS: BP 123/83; PULSE 98; RESP 18
--- NOTE | 2018-09-28 16:14 | PN ---
Date/Time of Note Date/Time of Note DATE: 09/28/18 TIME: 16:13 Assessment/Plan VTE Prophylaxis Risk score (from Ns)>0 risk: 4 SCD applied (from Ns): Yes Pharmacological prophylaxis: NA/contraindicated Pharm contraindication: low risk/ambulating Lines/Catheters IV Catheter Type (from Nrsg): Saline Lock Urinary Cath still in place: No Assessment/Plan Assessment/Plan 1. debility and lethargy and poor apetitie likely 2/2 #2 -Improved, has consented to short term SNF placement 2. Diffuse multifocal PNA -concerning for chronic silent aspiration -ST eval -benefit from aggressive IV abx 3. Pulm nodule - had to see on CT, will need f/u CT after treatment of PNA 4. MANAV versus CKD -no obstruction on USS -likely underlying CKD -Renally dose all meds. -Nephro consult 5. dyslipidemia -home statin 6. HTN - BP control a little too tight on current regimen, may need reevaluation of antihypertensives 7. AREN : -PRN xanax as she was taking at home 8. Pul HTN -secondary? -will get echo as well Dispo: -based on CT findings, will benefit from more aggressive abx treatment -Case management for short-term SNF placement Result Diagram: 09/28/18 0504 09/28/18 0504 Subjective 24 Hr Interval Summary Free Text/Dictation No acute overnight events. Patient sitting up in bed, breathing comfortably on nasal cannula. Exam/Review of Systems Exam Vitals Vital Signs Date Temp Pulse Resp B/P (MAP) Pulse Ox O2 O2 Flow FiO2 Time Delivery Rate 09/28/18 3.0 14:07 09/28/18 98.3 98 18 123/83 99 13:28 (96) 09/28/18 Nasal 11:21 Cannula Intake and Output 09/27/18 09/27/18 09/28/18 1515:00 23:00 07:00 IntakeIntake Total 1060 ml 420 ml 100 ml OutputOutput Total 150 ml BalanceBalance 910 ml 420 ml 100 ml Exam Constitutional: alert, oriented, elderly obese, no distress, communicative, but speech is slow Head: atraumatic, normocephalic Neck: non-tender, supple Respiratory: coarse crackles in upper airway (throat) suggestive of phlegm but clear to auscultation with fairly good a/e in in the lower lobes Cardiovascular: regular rate and rhythm Gastrointestinal: S/ NT / ND / +BS Extremities: no edema, good radial pulses Results Results 24hrs Laboratory Tests Test 09/28/18 05:04 09/28/18 08:20 White Blood Count 10.2 Red Blood Count 3.42 L Hemoglobin 10.1 L Hematocrit 30.8 L Mean Corpuscular Volume 90.1 Mean Corpuscular Hemoglobin 29.5 Mean Corpuscular Hemoglobin Concent 32.8 Red Cell Distribution Width 15.4 H Platelet Count 492 H Mean Platelet Volume 9.7 Immature Granulocytes % 1.100 H Neutrophils % 83.6 H Lymphocytes % 8.3 L Monocytes % 6.5 Eosinophils % 0.3 Basophils % 0.2 Nucleated Red Blood Cells % 0.0 Immature Granulocytes # 0.110 H Neutrophils # 8.5 H Lymphocytes # 0.9 Monocytes # 0.7 Eosinophils # 0.0 Basophils # 0.0 Nucleated Red Blood Cells # 0.0 Sodium Level 143 Potassium Level 4.1 Chloride Level 109 Carbon Dioxide Level 24 Anion Gap 10 Blood Urea Nitrogen 20 Creatinine 1.53 H Est Glomerular Filtrat Rate mL/min Glucose Level 124 Calcium Level 8.5 Bedside Glucose 163 Medications Medication Current Medications IV Flush (NS 3 ml) 3 ml PER PROTOCOL IV ; Start 09/23/18 at 18:30 Aspirin (Halfprin) 81 mg DAILY PO Last administered on 09/28/18at 09:17; Admin Dose 81 MG; Start 09/24/18 at 09:00 Atorvastatin Calcium (Lipitor) 20 mg QHS PO Last administered on 09/27/18at 21:37; Admin Dose 20 MG; Start 09/23/18 at 21:00 Gabapentin (Neurontin) 300 mg BID PO Last administered on 09/28/18at 09:17; Admin Dose 300 MG; Start 09/23/18 at 21:00 Pantoprazole (Protonix Tab) 40 mg DAILY@06 PO Last administered on 09/28/18at 06:23; Admin Dose 40 MG; Start 09/24/18 at 06:00 Levalbuterol (Xopenex Neb) 1.25 mg Q4H RESP THERAPY PRN HHN SHORTNESS OF BREATH; Start 09/23/18 at 23:30 Ipratropium [place] (Atrovent 0.02% (Neb)) 0.5 mg Q4H RESP THERAPY PRN HHN SHORTNESS OF BREATH; Start 09/23/18 at 23:30 Benzonatate (Tessalon) 100 mg TID PRN PO COUGH Last administered on 09/28/18 09:28; Admin Dose 100 MG; Start 09/24/18 at 22:30 Hydralazine HCl (Apresoline) 25 mg BID PO Last administered on 09/28/18 09:18; Admin Dose 25 MG; Start 09/25/18 at 21:00 Metoprolol Succinate (Toprol Xl) 25 mg DAILY PO Last administered on 09/28/18 09:17; Admin Dose 25 MG; Start 09/26/18 at 09:00 Piperacillin Sod/ Tazobactam Sod 100 ml @ 200 mls/hr Q8 IVPB Last administered on 09/28/18 13:47; Admin Dose 200 MLS/HR; Start 09/25/18 at 15:00 Alprazolam (Xanax) 2 mg QHS PO Last administered on 09/27/18 21:39; Admin Dose 2 MG; Start 09/25/18 at 22:00 Acetaminophen (Tylenol Tab) 650 mg Q6H PRN PO MILD PAIN(1-3)OR ELEVATED TEMP Last administered on 09/25/18 22:31; Admin Dose 650 MG; Start 09/25/18 at 22:30 Miscellaneous Information (* Miscellaneous Pharmacy Order) can you please ens... ONCE XX ; Start 09/26/18 at 09:00 Heparin Sodium (Porcine) (Heparin (5000 Units/1ml)) 5,000 unit BID SC Last administered on 09/28/18 09:22; Admin Dose 5,000 UNIT; Start 09/27/18 at 09:00 Furosemide (Lasix) 40 mg DAILY IV Last administered on 09/28/18 09:19; Admin Dose 40 MG; Start 09/27/18 at 13:00 Methylprednisolone Sodium Succinate (Solu-Medrol) 40 mg Q8 IV Last administered on 09/28/18 13:46; Admin Dose 40 MG; Start 09/27/18 at 14:00 NITA BERRIOS MD Sep 28, 2018 16:14
[2018-09-28 20:08] VITALS: BP 113/65; PULSE 103; RESP 18
[2018-09-28] MEDS: ALPRAZOLAM 0.25 MG TAB PO SCH (21:58)
[2018-09-28] MEDS: ATORVASTATIN 20 MG TAB PO SCH (22:08)
[2018-09-29 02:10] VITALS: BP 129/95; PULSE 98; RESP 16
[2018-09-29] MEDS: PANTOPRAZOLE (EC) 40 MG TAB PO SCH (05:55)
[2018-09-29] MEDS: PIPER-TAZO 3.375 GM IV (PMX) 100 ML IVPB SCH ×2 (05:55→14:13)
[2018-09-29] MEDS: METHYLPREDNISOLONE 40 MG INJ IV SCH ×2 (05:55→14:13)
[2018-09-29 08:00] VITALS: BP 112/57; PULSE 72; RESP 20
[2018-09-29] MEDS: METOPROLOL (XL) 25 MG TAB PO SCH (08:52)
[2018-09-29] MEDS: ASPIRIN (EC) 81 MG TAB PO SCH (08:53)
[2018-09-29] MEDS: FUROSEMIDE 40 MG INJ IV SCH (08:53)
[2018-09-29] MEDS: GABAPENTIN 300 MG CAP PO SCH (08:53)
[2018-09-29] MEDS: HEPARIN 5,000 UNIT/1 ML VIAL SC SCH (09:01)
[2018-09-29] MEDS ORDERED: HYDR-3672 PO (09:20)
[2018-09-29] MEDS ORDERED: METO-335 PO (09:20)
[2018-09-29] MEDS ORDERED: ALPR0.254 PO (09:20)
[2018-09-29] MEDS ORDERED: ZOS3375I IV (09:20)
[2018-09-29] MEDS ORDERED: ALPR0.5T PO (09:20)
[2018-09-29] MEDS ORDERED: ALPR1TAB2 PO (09:20)
[2018-09-29] MEDS ORDERED: FURO-109 PO (09:20)
[2018-09-29] MEDS ORDERED: PRED10TA PO (09:20)
[2018-09-29] MEDS ORDERED: IPRA3AMP29 INHALATION (09:21)
--- NOTE | 2018-09-29 10:21 | PN ---
DATE: 09/29/2018 SUBJECTIVE: The patient is stable, no fever, chills, nausea, vomiting. OBJECTIVE: VITAL SIGNS: Blood pressure is 112/57, respirations 20, pulse 72, temperature 98.0. HEENT: Head is normocephalic. NECK: Supple. HEART: Regular rate. LUNGS: Show diminished breath sounds at the base. ABDOMEN: Soft, nontender to palpation without rebound or guarding. EXTREMITIES: Negative for clubbing, cyanosis, no edema. DERMATOLOGIC: No rashes. MUSCULOSKELETAL: No joint effusion. NEUROLOGIC: No change in exam. MEDICATIONS: Reviewed. LABORATORY DATA: Has been reviewed. ASSESSMENT AND PLAN: 1. Nonoliguric acute kidney injury on top of chronic kidney disease with unknown baseline creatinine . Etiology of acute kidney injury is secondary to hemodynamics. Renal function appears to be stabil izing around creatinine 1.3 to 1.5 mg/dL, continue current treatment plan, supportive care, renally d ose all meds. 2. Anemia. Monitor hemoglobin and hematocrit levels. 3. Mineral bone disorder, monitor calcium and phosphorus levels. 4. Sepsis secondary to pneumonia. Continue current antibiotic regimen. 5. Acute hypoxic respiratory failure secondary to pneumonia. The patient is clinically improving. Continue current treatment plan. Continue antibiotics, bronchodilators. 6. Pulmonary nodules, monitor. 7. Dyslipidemia. 8. History of pulmonary hypertension. Dictated By: KAT GONZALEZ/SURY Conf#: [id number] DID#: [id number] CC: NITA BERRIOS MD;*EndCC*
--- NOTE | 2018-09-29 10:48 | CONS ---
Assessment/Plan Assessment/Plan Assessment/Plan (Daily) Assessment and recommendations; 1. Patient admitted with bilateral community acquired pneumonia with clinical improvement. Currently on appropriate antimicrobial regimen. 2. Exertional hypoxemia. 3. Chronic renal insufficiency. 4. Anemia. Continue current supportive care. Add oral Zithromax to 30 mg daily. Consultation Date/Type/Reason Admit Date/Time Sep 25, 2018 at 14:23 Initial Consult Date Type of Consult Pulmonary Patient's condition is stable. Getting physical therapy and be ambulated in the hallway. Patient is still exhibiting O2 desaturation on room air with exertion. Denies any chest pain, shortness of breath, wheezing or any sputum production. General exam; elderly woman, awake alert, currently no distress. Reason for Consultation HEENT exam; supple neck, no JVD. No lymphadenopathy. Midline trachea. No thyromegaly. Patient does have multiple carious teeth. No neck masses. Chest exam; diminished breath sounds bilaterally. No added sounds. S1-S2 audible, no murmurs. Regular rhythm. Abdomen exam; soft, nontender. No organomegaly. Bowel sounds audible. Extremity exam; no peripheral edema or clubbing. NUTRITION TEACHER exam; no focal deficit. Date/Time of Note DATE: 09/29/18 TIME: 10:46 Exam/Review of Systems Exam Vitals Vital Signs Date Temp Pulse Resp B/P (MAP) Pulse Ox O2 O2 Flow FiO2 Time Delivery Rate 09/29/18 98.0 72 20 112/57 94 08:00 (75) 09/29/18 3.0 02:42 09/28/18 Nasal 20:00 Cannula Intake and Output 09/28/18 09/28/18 09/29/18 1414:59 22:59 06:59 IntakeIntake Total 920 ml 340 ml 100 ml BalanceBalance 920 ml 340 ml 100 ml Results Result Diagram: 09/28/18 0504 09/28/18 0504 Medications Medication Current Medications IV Flush (NS 3 ml) 3 ml PER PROTOCOL IV ; Start 09/23/18 at 18:30 Aspirin (Halfprin) 81 mg DAILY PO Last administered on 09/29/18at 08:53; Admin Dose 81 MG; Start 09/24/18 at 09:00 Atorvastatin Calcium (Lipitor) 20 mg QHS PO Last administered on 09/28/18at 22:08; Admin Dose 20 MG; Start 09/23/18 at 21:00 Gabapentin (Neurontin) 300 mg BID PO Last administered on 09/29/18 08:53; Admin Dose 300 MG; Start 09/23/18 at 21:00 Pantoprazole (Protonix Tab) 40 mg DAILY@06 PO Last administered on 09/29/18 05:55; Admin Dose 40 MG; Start 09/24/18 at 06:00 Levalbuterol (Xopenex Neb) 1.25 mg Q4H RESP THERAPY PRN HHN SHORTNESS OF BREAT H; Start 09/23/18 at 23:30 Ipratropium [place] (Atrovent 0.02% (Neb)) 0.5 mg Q4H RESP THERAPY PRN HHN SHORTNESS OF BREATH; Start 09/23/18 at 23:30 Benzonatate (Tessalon) 100 mg TID PRN PO COUGH Last administered on 09/28/18 09:28; Admin Dose 100 MG; Start 09/24/18 at 22:30 Hydralazine HCl (Apresoline) 25 mg BID PO Last administered on 09/29/18 08:53; Admin Dose 25 MG; Start 09/25/18 at 21:00 Metoprolol Succinate (Toprol Xl) 25 mg DAILY PO Last administered on 09/29/18 08:52; Admin Dose 25 MG; Start 09/26/18 at 09:00 Piperacillin Sod/ Tazobactam Sod 100 ml @ 200 mls/hr Q8 IVPB Last administered on 09/29/18 05:55; Admin Dose 200 MLS/HR; Start 09/25/18 at 15:00 Alprazolam (Xanax) 2 mg QHS PO Last administered on 09/28/18 21:58; Admin Dose 2 MG; Start 09/25/18 at 22:00 Acetaminophen (Tylenol Tab) 650 mg Q6H PRN PO MILD PAIN(1-3)OR ELEVATED TEMP Last administered on 09/25/18 22:31; Admin Dose 650 MG; Start 09/25/18 at 22:30 Miscellaneous Information (* Miscellaneous Pharmacy Order) can you please ens... ONCE XX ; Start 09/26/18 at 09:00 Heparin Sodium (Porcine) (Heparin (5000 Units/1ml)) 5,000 unit BID SC Last administered on 09/29/18at 09:01; Admin Dose 5,000 UNIT; Start 09/27/18 at 09:00 Furosemide (Lasix) 40 mg DAILY IV Last administered on 09/29/18at 08:53; Admin Dose 40 MG; Start 09/27/18 at 13:00 Methylprednisolone Sodium Succinate (Solu-Medrol) 40 mg Q8 IV Last administered on 09/29/18at 05:55; Admin Dose 40 MG; Start 09/27/18 at 14:00 ALONDRA MEJÍA Sep 29, 2018 10:48
[2018-09-29] MEDS ORDERED: AZITHROMYCIN 250 MG TAB PO SCH (11:00)
[2018-09-29 14:26] VITALS: BP 137/65; PULSE 107; RESP 18
--- NOTE | 2018-09-29 18:16 | PDOCDIS ---
Discharge Instructions CONDITION [id number] Patient Condition: [id number] Stable HOME CARE INSTRUCTIONS: [id number] Diet Instructions: Oyrby4a Low Fat /Cholesterol ACTIVITY: [id number] Activity Restrictions: Ugtkc9m Slowly Increase Activity Rest between Activity FOLLOW UP/APPOINTMENTS Follow-up Plan f/u with the pulmunologist Dr Brock. You need a repeat CT scan of your lungs in about 4-6 weeks Name, Degree : Karan Brock MD Specialty : Critical Care Medicine Office Address : [address] [place] [address] Office Office LEXIE BOOGIE Sep 29, 2018 18:16
--- NOTE | 2018-09-29 18:19 | PDOCDIS ---
Discharge Instructions CONDITION [id number] Patient Condition: [id number] Stable HOME CARE INSTRUCTIONS: [id number] Diet Instructions: Vowda7k Low Fat /Cholesterol ACTIVITY: [id number] Activity Restrictions: [id number] Slowly Increase Activity Rest between Activity FOLLOW UP/APPOINTMENTS Follow-up Plan f/u with the pulmunologist Dr Brock. You need a repeat CT scan of your lungs in about 4-6 weeks Name, Degree : Karan Brock MD Specialty : Critical Care Medicine Office Address : [address] [place] [address] [place] [address] Office Office 2. you also need to followup with the Marketing Assistant Manager Follow up with the manager msw as below Name, Degree : Jorge Young DO Specialty: Internal Medicine / Nephrology Office Address: [address] [facility] [address] [place] [address] Office Office LEXIE BOOGIE Sep 29, 2018 18:19
[2018-09-29 19:22] VITALS: BP 136/67; PULSE 97; RESP 18
--- NOTE | 2018-09-30 09:30 | DS ---
DATE OF ADMISSION: 09/25/2018 DATE OF DISCHARGE: 09/29/2018 PRESENTING COMPLAINT: Fatigue and weakness. FINAL DIAGNOSES: 1. Debility and lethargy with poor appetite secondary to #2. 2. Diffuse multifocal pneumonia. 3. Pulmonary nodule for which repeat CT is required. 4. Acute kidney injury with underlying chronic kidney disease: Improved. The patient is back to [facility]. 5. Dyslipidemia. 6. Hypertension with good control. 7. Generalized anxiety disorder. 8. Pulmonary hypertension. This is a concern on CT scan. However, an echocardiogram, we checked the pulmonary pressure was only 37, also stage 1 diastolic dysfunction. CONSULTS ON THE CASE: Dr. Karan Brock and Dr. Siddhartha Gastelum for pulmonary, Dr. Jorge Young for nep hrology. INTERVENTIONS: See hospital course. HOSPITAL COURSE: Full details are available in the chart for review. SUMMARY: In summary, this is a 78-year-old female who lives at home with her primary caregiver. She was brought in by her daughter because of concerns of lethargy and debility and poor appetite. She was also found to be in acute renal failure. Initially, she was thought to have like a viral syndrom e, but CT was done to further define her lung parenchyma. There is also evidence of dehydration. CT , however, came back showing extensive multifocal bilateral peribronchovascular consolidative and nod ular infiltrates with mild ground glass opacities suggestive of multifocal pneumonia with moderate ca rdiomegaly, coronary and aortic atherosclerosis and findings suggestive of pulmonary hypertension. T he radiologist has recommended that the patient is a short term followup chest CT in 4 to 6 weeks to document complete resolution and to exclude underlying lung lesions. She was seen by speech therapy at the recommendation of the pulmonary physician as well as for possible silent aspiration. Speech t herapy did not see any overt signs of aspiration, but did encourage the patient to take small sips an d take grits with shortness of breath. The patient is also quite debilitated and has a lot of dyspne a with exertion. Echo did show stage I diastolic dysfunction, so she was treated with gentle diuresi s upon improvement of her renal function. At this time she is doing much better. She is being discharged to a alf facility for con tinued rehabilitation and also to complete treatment of her multifocal pneumonia with intravenous ant ibiotics versus oral. The plan is for her to follow up with pulmonary. Upon completion of therapy t o range for recommended CT in 4 to 6 weeks and continued management. This has been communicated in d etail to the patient and her daughter, questions have been answered. DISCHARGE CONDITION: Stable. ACTIVITY: As tolerated. FOLLOWUP: As per HPI. For a complete list of discharge medications, please review the patient's leonides rt. Overall time spent on discharge coordination has been more than 1 hour. Dictated By: LEXIE BOOGIE MD BA/NTS Conf#: [id number] DID#: [id number] CC: LEXIE BOOGIE MD; NITA BERRIOS MD; KARAN BROCK MD;*EndCC*
== END 2018-09-29 19:45 | DRG 871 ==
LOC: E/R 15:13 → 2NE 18:30 → OBSVTOIN 09-25 14:23
PROVIDERS: ADMIT Internal Medicine; ATTEND Family Medicine
DX: A41.9 Sepsis, unspecified organism (principal); J18.9 Pneumonia, unspecified organism; J96.01 Acute respiratory failure with hypoxia; N39.0 Urinary tract infection, site not specified; N17.9 Acute kidney failure, unspecified; I12.9 Hypertensive chronic kidney disease with stage 1 through stage 4 chronic kidney disease, or unspecified chronic kidney disease; N18.9 Chronic kidney disease, unspecified; I27.20 Pulmonary hypertension, unspecified
CPT/HCPCS: 36415; 36600; 71045; 71250; 76775; 80048; 80053; 81001; 81003; 82043; 82550; 82803; 82962; 83036; 83605; 83735; 84100; 84155; 84300; 84484; 85025; 86021; 86480; 86606; 86635; 87040; 87086; 87400; 92610; 93005; 93306; 96365; 96366; 96375; 97116; 97162; 97530; A4310; G0378; J0456; J0692; J0696; J1644; J1650; J1940; J2543; J2920; J3370; J7030